=== PATIENT | female | born 1965 | race Caucasian/White ===

== ENCOUNTER 2019-01-19 12:08 | Emergency (ER) | payer BC, OTHER ==
--- NOTE | 2019-01-19 12:11 | ERPHSYRPT ---
- History of Present Illness Time Seen by Provider: 01/19/19 12:11 Source: patient Exam Limitations: no limitations Physician History: 53 y/o nonsmoking white female presents with 10 days of cough, fever, body aches and 3 days of intermittent diarrhea but no vomiting. pt denies cp and denies abd pain. pt is around smokers. pt has h/o recurrent bronchitis. pt seen at urgent care center who sent her here after evaluating. Timing/Duration: day(s) (10) Fever Severity: mild Fever Therapy MEDICAL/SURGERY REGISTERED NURSE: none Associated Symptoms: cough, headache, No abdominal pain, No chest pain, No stiff neck Allergies/Adverse Reactions: No Known Drug Allergies Allergy (Verified 04/29/12 13:42) Home Medications: Alprazolam 1 mg [Xanax 1 mg] 2 mg PO TID 01/18/13 [History] Dicyclomine HCl 20 mg [Bentyl 20 mg] 40 mg PO ACHS 01/18/13 [History] Fluoxetine HCl 20 mg [Prozac 20 MG] 20 mg PO DAILY 01/18/13 [History] Hx Tetanus, Diphtheria Vaccination/Date Given: No Hx Influenza Vaccination/Date Given: Yes (fall 2011) Hx Pneumococcal Vaccination/Date Given: No - Review of Systems Constitutional: Fever Eyes: No Symptoms Ears, Nose, & Throat: No Symptoms Respiratory: Cough, Dyspnea (mild) Cardiac: No Chest Pain, No Palpitations, No Syncope Abdominal/Gastrointestinal: Nausea (mild), Diarrhea (mild intermittent), No Abdominal Pain, No Vomiting Genitourinary Symptoms: No Symptoms Musculoskeletal: No Symptoms Skin: No Symptoms Neurological: No Symptoms Psychological: No Symptoms Endocrine: No Symptoms Hematologic/Lymphatic: No Symptoms Immunological/Allergic: No Symptoms All Other Systems: Reviewed and Negative - Past Medical History Pertinent Past Medical History: No Neurological History: No Pertinent History ENT History: No Pertinent History Cardiac History: No Pertinent History Respiratory History: No Pertinent History Endocrine Medical History: No Pertinent History Musculoskeletal History: Degenerative Disk Disease GI Medical History: GERD, Ulcer, Other History: No Pertinent History Psycho-Social History: Anxiety, Depression Female Reproductive Disorders: Cervical Cancer - Past Surgical History Past Surgical History: Yes Neuro Surgical History: Other Cardiac: No Pertinent History Respiratory: No Pertinent History Gastrointestinal: No Pertinent History Genitourinary: No Pertinent History Musculoskeletal: No Pertinent History Female Surgical History: Hysterectomy, Tubal Ligation Other Surgical History: nerve decompression - Social History Smoking Status: Never smoker Exposure to second hand smoke: Yes Drug Use: none Patient Lives Alone: No - Nursing Vital Signs Nursing Vital Signs: Initial Vital Signs Temperature 99.8 F 01/19/19 12:14 Pulse Rate 80 01/19/19 12:14 Respiratory Rate 20 01/19/19 12:14 Blood Pressure 154/83 01/19/19 12:14 O2 Sat by Pulse Oximetry 96 01/19/19 12:14 Pain Scale Pain Intensity 2 - Physical Exam General Appearance: mild distress, alert, anxiety Eye Exam: PERRL/EOMI, eyes nml inspection ENT Exam: normal ENT inspection, TMs normal, pharynx normal Neck Exam: normal inspection, non-tender, supple, full range of motion, trachea midline Respiratory Exam: normal breath sounds, chest non-tender, lungs clear, no respiratory distress Cardiovascular/Chest Exam: normal heart sounds, regular rate/rhythm, murmur Gastrointestinal/Abdominal Exam: soft, non tender, no distention, no mass, no guarding, no ecchymosis, no organomegaly, no pulsatile mass Pelvic Exam: not done Rectal Exam: not done Extremity Exam: non-tender, normal range of motion, normal inspection Neurologic Exam: alert, oriented x 3, cooperative, 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, normal mood/affect Skin Exam: normal color, warm, dry Lymphatic: No adenopathy SpO2 Interpretation: normal O2 Delivery: Room Air - Course Nursing assessment & vital signs reviewed: Yes Ordered Tests: Active Orders 24 hr Category Date Time Status CHEST 1 VIEW (PORTABLE) Stat Exams 01/19/19 12:35 Completed Medication Summary Generic Name Dose Route Start Last Admin Trade Name Freq PRN Reason Stop Dose Admin Ceftriaxone Sodium/Dextrose 1 g in 50 mls @ 100 mls/hr 01/19/19 12:35 12:51 Rocephin 1 Gm-D5w 50 Ml Bag IV 01/19/19 13:04 100 mls/hr STAT STA 100 mls/hr Administration Discontinued Medications Generic Name Dose Route Start Last Admin Trade Name Freq PRN Reason Stop Dose Admin Ceftriaxone Sodium/Dextrose Confirm 01/19/19 12:44 Rocephin 1 Gm-D5w 50 Ml Bag Administered 01/19/19 12:45 Dose 1 g in 50 mls @ ud IV .STK-MED ONE Methylprednisolone Sodium Succinate 125 mg 01/19/19 12:35 01/19/19 12:50 Solu-Medrol 125 Mg IV 01/19/19 12:36 125 mg STAT ONE Administration Methylprednisolone Sodium Succinate Confirm 01/19/19 12:44 Solu-Medrol 125 Mg Administered 01/19/19 12:45 Dose 125 mg .ROUTE .STK-MED ONE - Progress Progress: improved Progress Note: 01/19/19 13:04 cxr-no acute process Counseled pt/family regarding: diagnosis, need for follow-up, rad results - Departure Departure Disposition: Home Clinical Impression: Bronchitis Condition: Stable Critical Care Time: No Additional Instructions: drink plenty of fluids. follow up with primary doctor for further management. add ibuprofen for fever, body aches Prescriptions: Ondansetron ODT 4 MG [Zofran Odt 4 mg] 4 mg PO Q6H PRN PRN #10 tab.rapdis PRN Reason: Vomiting Cefdinir 300 mg PO BID 7 Days #14 capsule Hydrocodone Bit/Acetaminophen [Hydrocodone-Acetaminophen Soln] 10 ml PO Q6H # 120 ml Prednisone 5 mg [Deltasone 5 mg] 5 mg PO TID #12 tablet
[2019-01-19 12:19] VITALS: O2SAT 96
[2019-01-19] MEDS ORDERED: ROCEPHIN 1 Gm-D5w 50 ml Bag** 1 G/50 ML IVPB IV STA (12:35)
[2019-01-19] MEDS ORDERED: solu-MEDROL 125 MG IV ONE (12:35)
[2019-01-19] MEDS ORDERED: ROCEPHIN 1 Gm-D5w 50 ml Bag** 1 G/50 ML IVPB IV ONE (12:44)
[2019-01-19] MEDS ORDERED: solu-MEDROL 125 MG ONE (12:44)
--- NOTE | 2019-01-19 12:57 | XRAY ---
Indication: Fever and cough. Comparison: December 05, 2017. Portable chest again demonstrates normal heart and lungs. Bony thorax intact again with minimal degenerative changes. No new/acute findings.
[2019-01-19 13:20] VITALS: BP 119/46; PULSE 77
== END 2019-01-19 13:33 | disposition home or self-care (01) ==
LOC: ED 12:08
DX: J40 Bronchitis, not specified as acute or chronic (principal); K21.9 Gastro-esophageal reflux disease without esophagitis; F41.9 Anxiety disorder, unspecified; F32.9 Major depressive disorder, single episode, unspecified; Z85.41 Personal history of malignant neoplasm of cervix uteri; Z79.899 Other long term (current) drug therapy
CPT/HCPCS: 36000; 71045; 96365; 96374; 99284; J0696; J2930

== ENCOUNTER 2019-06-18 11:59 | Emergency (ER) | payer SELFPAY ==
[2019-06-18] MEDS ORDERED: Sodium Chloride 0.9% 1000 ML 1,000 ML IV STA (12:23)
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
[2019-06-18] MEDS ORDERED: Sodium Chloride 0.9% 1000 ML 1,000 ML ONE (12:30)
[2019-06-18 12:47] LABS: Absolute Neutrophil Ct (ANC) 5.39 (1.4-6.9); BASOPHIL % 1.1 % (0.0-0.4); Basophil (Absolute #) 0.09 (0-0.4); Eosinophil % 4.4 % (0.00-5.0); Eosinophil (Absolute #) 0.36 (0-0.5); Hematocrit 37.4 % (35-47); Hemoglobin 12.9 gm/dl (12.0-16.0); Lymphocyte (Absolute #) 1.72 (1.0-4.6); Lymphocytes % 21.1 % (24.0-44.0); Mean Corpuscular Hemoglobin 30.7 pg (26-32); Mean Corpuscular Hgb Concent. 34.5 g/dl (32-36); Mean Platelet Volume 8.5 fl (6-9.5); Monocytes % 7.4 % (0.0-12.0); Platelet Count 276 K/mm3 (150-450); Red Cell Distribution Width 12.8 % (11.5-14.0); White Blood Count 8.2 K/mm3 (4.0-10.5)
[2019-06-18 12:57] LABS: ALBUMIN 4.4 g/dL (3.5-5.0); ALKALINE PHOSPHATASE 67 U/L (38-126); ANION GAP 14.4 MEQ/L (5-15); BLOOD UREA NITROGEN 10 mg/dL (7-17); CHLORIDE 104 mmol/L (98-107); Calcium 9.8 mg/dL (8.4-10.2); Carbon Dioxide 26 mmol/L (22-30); Creatinine 1 0.73 mg/dL (0.52-1.04); Glucose 82 mg/dL (74-106); Potassium 3.9 mmol/L (3.5-5.1); SGOT/AST 36 U/L (14-36); SGPT/ALT 28 U/L (0-35); SODIUM 141 mmol/L (137-145); Total Protein 7.6 g/dL (6.3-8.2)
[2019-06-18 12:59] LABS: ACETAMINOPHEN < 10 ug/ml (10-30); ETHYL ALCOHOL < 10 mg/dL (0-10); SALICYLATE < 1.0 mg/dL (2-20)
[2019-06-18 14:10] LABS: Appearance CLEAR (CLEAR); Bacteria RARE /HPF (NEGATIVE); Bilirubin NEGATIVE (NEGATIVE); Blood NEGATIVE Ery/ul (0-5); Epithelial Cells FEW /HPF (FEW); Glucose NEGATIVE (NEGATIVE); Ketones NEGATIVE (NEGATIVE); Leukocyte Esterase NEGATIVE (NEGATIVE); Mucus MODERATE /HPF (NEGATIVE); Nitrite NEGATIVE (NEGATIVE); Protein,Urine Dip NEGATIVE (Negative); RBC 0-2 /HPF (0-2); Specific Gravity 1.003 (1.005-1.025); Urobilinogen NEGATIVE mg/dL (0-1); WBC 0-2 /HPF (0-5)
[2019-06-18 14:16] LABS: Amphetamine,Urine POSITIVE (NEGATIVE); Barbiturate,Urine NEGATIVE (NEGATIVE); Benzodiazepine,Urine NEGATIVE (NEGATIVE); Cocaine,Urine NEGATIVE (NEGATIVE); Methadone,Urine NEGATIVE (NEGATIVE); Opiate,Urine NEGATIVE (NEGATIVE); PCP,Urine NEGATIVE (NEGATIVE); THC,Urine NEGATIVE (NEGATIVE)
--- NOTE | 2019-06-18 19:58 | XRAY ---
Indication: Pain following dog attack. Multiple contiguous axial images obtained through the head without contrast. Comparison: None Normal appearing brain parenchyma, ventricles, and bony calvarium. There is moderate mucosal thickening of both ethmoid and both maxillary sinuses. Mastoid air cells are clear. Impression: Paranasal sinus disease. No acute intracranial abnormalities. CTDI 45.04
--- NOTE | 2019-06-18 20:00 | XRAY ---
Indication: Pain following dog attack. Multiple contiguous axial images obtained through the facial bones. Sagittal and coronal reformatted images obtained. Comparison: None Several images are degraded by motion artifact even with repeat CT. No acute fracture, suspicious bony lesions, or radiopaque foreign body. Orbits including roof, george, and floors are intact. There is moderate mucosal thickening of both ethmoid and both maxillary sinuses. Mastoid air cells are clear. Centimeter/subcentimeter cervical and submandibular lymph nodes bilaterally presumed reactive. Remaining visualized noncontrasted soft tissues are unremarkable. Impression: Motion artifact. Paranasal sinus disease. Negative acute fracture. CTDI 38.27
[2019-06-18 21:59] VITALS: PULSE 75
[2019-06-19 00:41] VITALS: BP 117/82; O2SAT 97
== END 2019-06-19 01:10 | disposition short-term general hospital (02) ==
LOC: ED 11:59
DX: R41.0 Disorientation, unspecified (principal)
CPT/HCPCS: 36415; 70450; 70486; 80053; 80307; 81001; 84484; 85025; 93005; 93041; 96360; 99285; G0481; G0480

== ENCOUNTER 2019-10-09 12:41 | Emergency (ER) | payer BC, MEDICAID, SELFPAY ==
[2019-10-09] MEDS ORDERED: DUONEB 0.5-3 MG/3 ml Neb IH ONE ×2 (12:43→13:20)
[2019-10-09] MEDS ORDERED: Ativan 2 MG/1 ML VIAL IV ONE (12:54)
[2019-10-09] MEDS ORDERED: solu-MEDROL 125 MG IV ONE (12:54)
--- NOTE | 2019-10-09 12:54 | ERPHSYRPT ---
- History of Present Illness Time Seen by Provider: 10/09/19 12:51 Source: patient, family Exam Limitations: clinical condition Physician History: This is a 54-year-old female, presents with shortness of breath and right-sided chest pain. Patient does not have any clotting disorders. Patient has no history of coronary artery disease. Patient does not smoke cigarettes. She has a history of bronchitis and does have nebulizer treatments of albuterol at home. Patient has been "fighting this" for 2 months. Symptoms are worse today. Timing/Duration: week(s) (8), worse Severity of Dyspnea-Max: moderate Severity of Dyspnea-Current: moderate Possible Cause: occasional episodes Modifying Factors: Improves With: coughing, other (As of breath) Associated Symptoms: anxiety, cough, chest pain/discomfort (Right side) Allergies/Adverse Reactions: No Known Drug Allergies Allergy (Verified 10/09/19 12:52) Home Medications: No Reportable Medications [No Reported Medications] 10/09/19 [History] Hx Tetanus, Diphtheria Vaccination/Date Given: No Hx Influenza Vaccination/Date Given: No Hx Pneumococcal Vaccination/Date Given: No - Review of Systems Constitutional: No Symptoms Eyes: No Symptoms Ears, Nose, & Throat: No Symptoms Respiratory: Cough, Dyspnea, Wheezing Cardiac: Chest Pain (Right side) Abdominal/Gastrointestinal: No Symptoms Genitourinary Symptoms: No Symptoms Musculoskeletal: No Symptoms Skin: No Symptoms Neurological: No Symptoms Psychological: Anxiety Endocrine: No Symptoms Hematologic/Lymphatic: No Symptoms Immunological/Allergic: No Symptoms All Other Systems: Reviewed and Negative - Past Medical History Pertinent Past Medical History: Yes Neurological History: No Pertinent History ENT History: No Pertinent History Cardiac History: No Pertinent History Respiratory History: No Pertinent History Endocrine Medical History: No Pertinent History Musculoskeletal History: Degenerative Disk Disease GI Medical History: GERD, Ulcer, Other History: No Pertinent History Psycho-Social History: Anxiety, Depression Female Reproductive Disorders: Cervical Cancer - Past Surgical History Past Surgical History: Yes Neuro Surgical History: Other Cardiac: No Pertinent History Respiratory: No Pertinent History Gastrointestinal: No Pertinent History Genitourinary: No Pertinent History Musculoskeletal: No Pertinent History Female Surgical History: Hysterectomy, Tubal Ligation Other Surgical History: nerve decompression - Social History Smoking Status: Never smoker Exposure to second hand smoke: Yes Drug Use: none Patient Lives Alone: No - Nursing Vital Signs Nursing Vital Signs: Initial Vital Signs Temperature 99.0 F 10/09/19 12:53 Pulse Rate 82 10/09/19 12:53 Respiratory Rate 35 H 10/09/19 12:53 Blood Pressure 144/94 10/09/19 12:53 O2 Sat by Pulse Oximetry 84 L 10/09/19 12:53 Pain Scale Pain Intensity 0 - Physical Exam General Appearance: moderate distress, alert, anxiety Eye Exam: PERRL/EOMI Ears, Nose, Throat Exam: hearing grossly normal Neck Exam: normal inspection, non-tender, supple, full range of motion Respiratory Exam: chest tenderness (Side), respiratory distress (Mild), airway intact, wheezing Cardiovascular/Chest Exam: normal heart sounds, regular rate/rhythm Neurologic Exam: alert, oriented x 3, cooperative, back tufter II-XII nml as tested, nml cerebellar function, nml station & gait Skin Exam: normal color, warm, dry Lymphatic Exam: No adenopathy SpO2 Interpretation: normal O2 Delivery: Room Air Ordered Tests: Active Orders 24 hr Category Date Time Status Statement Clerks Supervisor STAT Care 10/09/19 12:55 Active EKG-ER Only STAT Care 10/09/19 12:54 Active IV Insertion STAT Care 10/09/19 12:54 Active Pulse Oximetry (ED) STAT Care 10/09/19 12:54 Active CHEST 1 VIEW (PORTABLE) Stat Exams 10/09/19 12:54 Completed CBC W DIFF Stat Lab 10/09/19 Completed CMP Stat Lab 10/09/19 Completed D-DIMER QUANTITATIVE Stat Lab 10/09/19 Completed Lactic Acid Stat Lab 10/09/19 12:54 Completed NT PRO BNP Stat Lab 10/09/19 Completed PROTIME WITH INR Stat Lab 10/09/19 Completed TROPONIN Q3H Lab 10/09/19 Completed TROPONIN Q3H Lab 10/09/19 16:00 Ordered TROPONIN Q3H Lab 10/09/19 19:00 Ordered TROPONIN Q3H Lab 10/09/19 22:00 Ordered TROPONIN Q3H Lab 10/10/19 01:00 Ordered Respiratory Therapy Assessment DAILY RT 10/09/19 13:20 Completed Medication Summary Discontinued Medications Generic Name Dose Route Start Last Admin Trade Name Freq PRN Reason Stop Dose Admin Albuterol/Ipratropium Confirm 10/09/19 12:43 Duoneb 0.5-3 Mg/3 Ml Neb Administered 10/09/19 12:44 Dose 3 ml IH .STK-MED ONE Albuterol/Ipratropium 3 ml 10/09/19 13:20 10/09/19 13:00 Duoneb 0.5-3 Mg/3 Ml Neb IH 10/09/19 13:21 3 ml STAT ONE Administration Lorazepam 1 mg 10/09/19 12:54 10/09/19 13:18 Ativan 2 Mg/1 Ml Vial IV 10/09/19 12:55 1 mg STAT ONE Administration Lorazepam Confirm 10/09/19 13:09 Ativan 2 Mg/1 Ml Vial Administered 10/09/19 13:10 Dose 2 mg .ROUTE .STK-MED ONE Methylprednisolone Sodium Succinate 125 mg 10/09/19 12:54 10/09/19 13:20 Solu-Medrol 125 Mg IV 10/09/19 12:55 125 mg STAT ONE Administration Methylprednisolone Sodium Succinate Confirm 10/09/19 13:09 Solu-Medrol 125 Mg Administered 10/09/19 13:10 Dose 125 mg .ROUTE .STK-MED ONE Morphine Sulfate 2 mg 10/09/19 12:55 10/09/19 13:20 Morphine Sulfate 2 Mg Inj IV 10/09/19 12:56 2 mg STAT ONE Administration Morphine Sulfate Confirm 10/09/19 13:09 Morphine Sulfate 2 Mg Inj Administered 10/09/19 13:10 Dose 2 mg .ROUTE .STK-MED ONE Lab/Rad Data: Laboratory Result Diagrams 10/09/19 Unknown 10/09/19 Unknown Laboratory Results 10/09/19 10/09/19 10/09/19 Range/Units Unknown Unknown Unknown WBC (4.0-10.5) K/mm3 RBC (4.1-5.4) M/mm3 Hgb (12.0-16.0) gm/dl Hct (35-47) % MCV (78-100) fl MCH (26-32) pg MCHC (32-36) g/dl RDW (11.5-14.0) % Plt Count (150-450) K/mm3 MPV (7.5-11.0) fl Gran % (36.0-66.0) % Eos # (Auto) (0-0.5) Absolute Lymphs (auto) (1.0-4.6) Absolute Monos (auto) (0.0-1.3) Lymphocytes % (24.0-44.0) % Monocytes % (0.0-12.0) % Eosinophils % (0.00-5.0) % Basophils % (0.0-0.4) % Absolute Granulocytes (1.4-6.9) Basophils # (0-0.4) PT 10.2 (9.95-12.35) SECONDS INR 0.90 (0.8-3.0) D-Dimer 278 (215-500) ng/mL Sodium (137-145) mmol/L Potassium (3.5-5.1) mmol/L Chloride (98-107) mmol/L Carbon Dioxide (22-30) mmol/L Anion Gap (5-15) MEQ/L BUN (7-17) mg/dL Creatinine (0.52-1.04) mg/dL Estimated GFR ML/MIN Glucose (74-106) mg/dL Lactic Acid (0.4-2.0) Calcium (8.4-10.2) mg/dL Total Bilirubin (0.2-1.3) mg/dL AST (14-36) U/L ALT (0-35) U/L Alkaline Phosphatase (38-126) U/L Troponin I < 0.012 (0.000-0.034) ng/mL NT-Pro-B Natriuret Pep (0-900) pg/mL Serum Total Protein (6.3-8.2) g/dL Albumin (3.5-5.0) g/dL Influenza Type A Ag NEGATIVE (NEGATIVE) Influenza Type B Ag NEGATIVE (NEGATIVE) RSV (PCR) NEGATIVE (Negative) 10/09/19 10/09/19 10/09/19 Range/Units Unknown Unknown 12:54 WBC 6.4 (4.0-10.5) K/mm3 RBC 4.32 (4.1-5.4) M/mm3 Hgb 13.4 (12.0-16.0) gm/dl Hct 40.2 (35-47) % MCV 93.1 (78-100) fl MCH 31.0 (26-32) pg MCHC 33.3 (32-36) g/dl RDW 12.7 (11.5-14.0) % Plt Count 323 (150-450) K/mm3 MPV 9.1 (7.5-11.0) fl Gran % 43.8 (36.0-66.0) % Eos # (Auto) 0.98 H (0-0.5) Absolute Lymphs (auto) 1.96 (1.0-4.6) Absolute Monos (auto) 0.56 (0.0-1.3) Lymphocytes % 30.6 (24.0-44.0) % Monocytes % 8.7 (0.0-12.0) % Eosinophils % 15.3 H (0.00-5.0) % Basophils % 1.6 (0.0-0.4) % Absolute Granulocytes 2.81 (1.4-6.9) Basophils # 0.10 (0-0.4) PT (9.95-12.35) SECONDS INR (0.8-3.0) D-Dimer (215-500) ng/mL Sodium 142 (137-145) mmol/L Potassium 4.4 (3.5-5.1) mmol/L Chloride 106 (98-107) mmol/L Carbon Dioxide 28 (22-30) mmol/L Anion Gap 11.7 (5-15) MEQ/L BUN 8 (7-17) mg/dL Creatinine 0.73 (0.52-1.04) mg/dL Estimated GFR > 60.0 ML/MIN Glucose 100 (74-106) mg/dL Lactic Acid 2.0 (0.4-2.0) Calcium 9.6 (8.4-10.2) mg/dL Total Bilirubin 0.60 (0.2-1.3) mg/dL AST 35 (14-36) U/L ALT 28 (0-35) U/L Alkaline Phosphatase 84 (38-126) U/L Troponin I (0.000-0.034) ng/mL NT-Pro-B Natriuret Pep 126 (0-900) pg/mL Serum Total Protein 7.1 (6.3-8.2) g/dL Albumin 4.2 (3.5-5.0) g/dL Influenza Type A Ag (NEGATIVE) Influenza Type B Ag (NEGATIVE) RSV (PCR) (Negative) - Progress Progress: improved, re-examined Air Movement: good Progress Note: 10/09/19 14:06 Chest x-ray showed no acute pulmonary process 10/09/19 14:40 Patient states that she did something very stupid a few days ago. She is wondering if this is contributing to her symptoms. That is, patient used methamphetamines a few days ago. Blood Culture(s) Obtained: No Antibiotics given: No Counseled pt/family regarding: lab results, diagnosis, need for follow-up, rad results - Departure Departure Disposition: Home Clinical Impression: Anxiety, Chest pain, non-cardiac, Bronchitis Condition: Stable Critical Care Time: No Referrals: CARISSA ROCHA [Primary Care Provider] - Additional Instructions: Follow-up with your primary care physician for further management. Avoid illicit drug use. Use Tylenol and ibuprofen for pain.
[2019-10-09] MEDS ORDERED: MORPHINE SULFATE 2 MG INJ IV ONE (12:55)
[2019-10-09] MEDS ORDERED: Ativan 2 MG/1 ML VIAL ONE (13:09)
[2019-10-09] MEDS ORDERED: MORPHINE SULFATE 2 MG INJ ONE (13:09)
[2019-10-09] MEDS ORDERED: solu-MEDROL 125 MG ONE (13:09)
--- NOTE | 2019-10-09 13:24 | XRAY ---
Indication: Chest pain, short of breath, and fever. Comparison: January 19, 2019. Portable chest again demonstrates normal heart and lungs. Bony thorax intact again with minimal degenerative changes. No new/acute findings.
[2019-10-09 13:48] LABS: Absolute Neutrophil Ct (ANC) 2.81 (1.4-6.9); BASOPHIL % 1.6 % (0.0-0.4); Eosinophil % 15.3 % (0.00-5.0); Eosinophil (Absolute #) 0.98 (0-0.5); Hematocrit 40.2 % (35-47); Hemoglobin 13.4 gm/dl (12.0-16.0); Lymphocyte (Absolute #) 1.96 (1.0-4.6); Lymphocytes % 30.6 % (24.0-44.0); Mean Cell Volume 93.1 fl (78-100); Mean Corpuscular Hgb Concent. 33.3 g/dl (32-36); Mean Platelet Volume 9.1 fl (7.5-11.0); Monocyte (Absolute #) 0.56 (0.0-1.3); Monocytes % 8.7 % (0.0-12.0); Neutrophil % 43.8 % (36.0-66.0); Platelet Count 323 K/mm3 (150-450); Red Blood Count 4.32 M/mm3 (4.1-5.4); Red Cell Distribution Width 12.7 % (11.5-14.0); White Blood Count 6.4 K/mm3 (4.0-10.5)
[2019-10-09 13:59] LABS: INR 0.9 (0.8-3.0); PROTIME 10.2 SECONDS (9.95-12.35)
[2019-10-09 14:13] LABS: ALBUMIN 4.2 g/dL (3.5-5.0); ALKALINE PHOSPHATASE 84 U/L (38-126); ANION GAP 11.7 MEQ/L (5-15); BLOOD UREA NITROGEN 8 mg/dL (7-17); CHLORIDE 106 mmol/L (98-107); Calcium 9.6 mg/dL (8.4-10.2); Carbon Dioxide 28 mmol/L (22-30); Creatinine 1 0.73 mg/dL (0.52-1.04); Glucose 100 mg/dL (74-106); NT PRO BNP 126 pg/mL (0-900); Potassium 4.4 mmol/L (3.5-5.1); SGOT/AST 35 U/L (14-36); SGPT/ALT 28 U/L (0-35); SODIUM 142 mmol/L (137-145); Total Protein 7.1 g/dL (6.3-8.2)
[2019-10-09 14:21] LABS: INFLUENZA A NEGATIVE (NEGATIVE); INFLUENZA B NEGATIVE (NEGATIVE); RESPIRATORY SYNCTIAL VIRUS NEGATIVE (Negative)
[2019-10-09 14:32] VITALS: BP 146/87; PULSE 65; O2SAT 100
== END 2019-10-09 15:39 | disposition home or self-care (01) ==
LOC: ED 12:41
DX: F41.9 Anxiety disorder, unspecified (principal); R07.89 Other chest pain; J40 Bronchitis, not specified as acute or chronic; Z85.41 Personal history of malignant neoplasm of cervix uteri
CPT/HCPCS: 36000; 36415; 71045; 80053; 83605; 83880; 84484; 85025; 85379; 85610; 87631; 93005; 93041; 94640; 94760; 96374; 96375; 99284; J2060; J2270; J2930; A9270-GY

== ENCOUNTER 2020-07-22 04:54 | Observation (INO) | payer MEDICAID ==
[2020-07-22] MEDS ORDERED: DUONEB 0.5-3 MG/3 ml Neb IH ONE ×2 (05:12→06:39)
[2020-07-22] MEDS ORDERED: ROCEPHIN 1 Gm-D5w 50 ml Bag** 1 G/50 ML IVPB IV STA (05:12)
[2020-07-22] MEDS ORDERED: solu-MEDROL 125 MG IV ONE (05:12)
[2020-07-22] MEDS ORDERED: Zithromax 500 MG/ 250 ML NaCl Premix 500 MG/250 ML IVPB IV STA (05:12)
--- NOTE | 2020-07-22 05:18 | ERPHSYRPT ---
<JORDAN MENDOZASH - Last Filed: 07/22/20 09:33> - History of Present Illness Source: patient Exam Limitations: no limitations Patient Subjective Stated Complaint: pt state she has been short of breath for the last week. states she has been unable to get comgortable or sleep d/t shortness of breath tonight. Triage Nursing Assessment: pt alert and oreinted, answers questions approp. pt ambulatory with steady gait noted. pt short of breath with coarse lung sounds and wheezing throughout.skin warm and dry. pt unable to talk without pausing. occasional moist cough noted. Timing/Duration: week(s) (1), gradual onset, worse Activities at Onset: rest Severity of Dyspnea-Max: severe Severity of Dyspnea-Current: moderate Possible Cause: no prior episodes Modifying Factors: Improves With: albuterol nebulizer. Worsens With: activity, coughing, deep breath, exertion Associated Symptoms: cough, chest pain/discomfort, wheezing, weakness, painful breathing, productive cough, tightness Hx Tetanus, Diphtheria Vaccination/Date Given: No Hx Influenza Vaccination/Date Given: No Hx Pneumococcal Vaccination/Date Given: No Immunizations Up to Date: No <INOCENCIO WATSON - Last Filed: 07/24/20 08:35> - History of Present Illness Time Seen by Provider: 07/22/20 05:06 Physician History: 54 years old female presented in the ER with chief complaint of warts. Shortness of breath for almost 1 week associated with cough productive thick green sputum copious in amount. Because of repeated coughing she is having pain in the lower chest george bilaterally. Subjective feeling of fever and chills. She has been using nebulizer at home with no significant relief. (INOCENCIO WATSON) Allergies/Adverse Reactions: No Known Drug Allergies Allergy (Verified 07/22/20 05:09) Home Medications: Albuterol 2.5 mg/3 ml Neb [Proventil 2.5 mg/3 ml Neb] 1 inh .ROUTE Q4H PRN 07/22/20 [History] Albuterol Common Canister [Ventolin Common Canister] 2 puff IH QID PRN 07/22/20 [History] Alprazolam 1 mg [Xanax 1 mg] 1 mg PO TID 07/22/20 [History] Aripiprazole [Abilify] 15 mg PO DAILY 07/22/20 [History] Buspirone HCl 5 mg [Buspar 5 mg] 5 mg PO BID 07/22/20 [History] Desvenlafaxine Succinate [Pristiq] 100 mg PO DAILY 07/22/20 [History] Pravastatin Sodium 40 mg PO DAILY 07/22/20 [History] Travel Risk - International Travel Have you traveled outside of the country in past 3 weeks: No - Coronavirus Screening Are you exhibiting any of the following symptoms?: Yes Symptoms: Shortness of Breath Close contact with a COVID-19 positive Pt in past 14-21 Days: No <INOCENCIO WATSON - Last Filed: 07/24/20 08:35> - Review of Systems Constitutional: No Symptoms Eyes: No Symptoms Ears, Nose, & Throat: No Symptoms Respiratory: Cough, Dyspnea Cardiac: Chest Pain Abdominal/Gastrointestinal: No Symptoms Genitourinary Symptoms: No Symptoms Musculoskeletal: No Symptoms Skin: No Symptoms Neurological: No Symptoms Psychological: No Symptoms Endocrine: No Symptoms Hematologic/Lymphatic: No Symptoms Immunological/Allergic: No Symptoms <INOCENCIO WATSON - Last Filed: 07/24/20 08:35> - Past Medical History Pertinent Past Medical History: Yes Neurological History: No Pertinent History ENT History: No Pertinent History Cardiac History: No Pertinent History Respiratory History: Bronchitis Endocrine Medical History: No Pertinent History Musculoskeletal History: Degenerative Disk Disease GI Medical History: GERD, Ulcer, Other History: No Pertinent History Psycho-Social History: Anxiety, Depression Female Reproductive Disorders: Cervical Cancer Other Medical History: stage 1 cervical ca - Past Surgical History Past Surgical History: Yes Neuro Surgical History: Other Cardiac: No Pertinent History Respiratory: No Pertinent History Gastrointestinal: No Pertinent History Genitourinary: No Pertinent History Musculoskeletal: No Pertinent History, Orthopedic Surgery Female Surgical History: Hysterectomy, Tubal Ligation Other Surgical History: nerve decompression, back surgery, conization - Social History Smoking Status: Never smoker Exposure to second hand smoke: Yes Drug Use: none Patient Lives Alone: No - Female History Hx Last Menstrual Period: hyster Hx Now: No <INOCENCIO WATSON - Last Filed: 07/24/20 08:35> - Physical Exam General Appearance: moderate distress, alert Eye Exam: PERRL/EOMI, eyes nml inspection Ears, Nose, Throat Exam: hearing grossly normal, pharyngeal erythema Neck Exam: normal inspection, non-tender, supple, full range of motion Respiratory Exam: diminished breath sounds, accessory muscle use, crackles/rales, rhonchi, wheezing Cardiovascular/Chest Exam: normal heart sounds, tachycardia Abdominal/Gastrointestinal Exam: soft, normal bowel sounds, No tenderness Extremity Exam: non-tender, normal range of motion, normal inspection Neurologic Exam: alert, oriented x 3, cooperative Skin Exam: normal color SpO2 Interpretation: normal SpO2: 94 O2 Delivery: Room Air <INOCENCIO WATSON - Last Filed: 07/24/20 08:35> - Nursing Vital Signs Nursing Vital Signs: Initial Vital Signs Pulse Rate 109 H 07/22/20 04:58 Respiratory Rate 32 H 07/22/20 04:58 Blood Pressure 173/121 07/22/20 04:58 O2 Sat by Pulse Oximetry 88 L 07/22/20 04:58 Pain Scale Pain Intensity 0 - Course Nursing assessment & vital signs reviewed: Yes EKG Interpreted by Me: RATE ([id number]), Sinus Tach, Left [place] Deviation, NORMAL INTERVALS, NORMAL QRS <INOCENCIO WATSON - Last Filed: 07/24/20 08:35> Ordered Tests: Medication Summary Discontinued Medications Generic Name Dose Route Start Last Admin Trade Name Amanq PRN Reason Stop Dose Admin Acetaminophen 650 mg 07/22/20 10:50 Tylenol 325 Mg PO 08/21/20 10:49 Q4H PRN PRN PAIN AND/OR FEVER Albuterol Sulfate 2 puff 07/22/20 12:23 Ventolin Common Canister IH 08/21/20 12:22 QID PRN PRN sob Albuterol Sulfate 2.5 mg 07/22/20 12:23 07/22/20 23:20 Proventil 2.5 Mg/3 Ml Neb IH 08/21/20 12:22 2.5 mg Q4H PRN PRN Administration sob Albuterol/Ipratropium 3 ml 07/22/20 05:12 07/22/20 06:56 Duoneb 0.5-3 Mg/3 Ml Neb IH 07/22/20 05:13 3 ml STAT ONE Administration Albuterol/Ipratropium Confirm 07/22/20 06:39 Duoneb 0.5-3 Mg/3 Ml Neb Administered 07/22/20 06:40 Dose 3 ml IH .STK-MED ONE Albuterol/Ipratropium 3 ml 07/22/20 11:00 07/23/20 07:13 Duoneb 0.5-3 Mg/3 Ml Neb IH 08/21/20 10:59 3 ml QIDRT OPHELIA Administration Albuterol/Ipratropium 3 ml 07/22/20 13:00 Duoneb 0.5-3 Mg/3 Ml Neb IH 08/21/20 12:59 Q6HRT OPHELIA Alprazolam 1 mg 07/22/20 15:00 07/22/20 21:53 Xanax 1 Mg PO 08/21/20 14:59 1 mg TID OPHELIA Administration Aripiprazole 15 mg 07/22/20 13:00 07/22/20 13:18 Abilify 10 Mg PO 08/21/20 12:59 15 mg DAILY OPHELIA Administration Buspirone HCl 5 mg 07/22/20 12:45 07/22/20 21:53 Buspar 5 Mg PO 08/21/20 12:44 5 mg BID OPHELIA Administration Desvenlafaxine Succinate 100 mg 07/22/20 13:00 07/22/20 13:17 Pristiq Er PO 08/21/20 12:59 100 mg DAILY OPHELIA Administration Famotidine 20 mg 07/22/20 10:50 07/22/20 21:53 Pepcid 20 Mg Vial IV 08/21/20 10:49 20 mg Q12HT OPHELIA Administration Ceftriaxone Sodium/Dextrose 1 g in 50 mls @ 100 mls/hr 07/22/20 05:12 07/22/20 06:14 Rocephin 1 Gm-D5w 50 Ml Bag IV 07/22/20 05:41 Infused STAT STA Infusion Azithromycin 500 mg in 250 mls @ 250 mls/hr 07/22/20 05:12 07/22/20 07:16 Zithromax 500 Mg/ 250 Ml Nacl Premix IV 07/22/20 06:11 Infused STAT STA Infusion Azithromycin Confirm 07/22/20 05:32 Zithromax 500 Mg/ 250 Ml Nacl Premix Administered 07/22/20 05:33 Dose 500 mg in 250 mls @ ud IV .STK-MED ONE Ceftriaxone Sodium/Dextrose Confirm 07/22/20 05:32 Rocephin 1 Gm-D5w 50 Ml Bag Administered 07/22/20 05:33 Dose 1 g in 50 mls @ ud IV .STK-MED ONE Azithromycin 500 mg in 250 mls @ 250 mls/hr 07/23/20 10:00 Zithromax 500 Mg/ 250 Ml Nacl Premix IV 08/22/20 09:59 Q24H10 OPHELIA Ceftriaxone Sodium/Dextrose 1 g in 50 mls @ 100 mls/hr 07/22/20 10:50 Rocephin 1 Gm-D5w 50 Ml Bag IV 08/21/20 10:49 Q24H10 OPHELIA Sodium Chloride 1,000 mls @ 100 mls/hr 07/22/20 10:50 07/23/20 08:00 Sodium Chloride 0.9% 1000 Ml IV 08/21/20 10:49 100 mls/hr .Q10H OPHELIA Administration Ceftriaxone Sodium/Dextrose 1 g in 50 mls @ 100 mls/hr 07/23/20 10:00 Rocephin 1 Gm-D5w 50 Ml Bag IV 08/22/20 09:59 Q24H10 OPHELIA Insulin Human Lispro 0 unit 07/22/20 10:50 Humalog SQ 08/21/20 10:49 UD PRN HYPERGLYCEMIA Lorazepam 1 mg 07/22/20 05:46 07/22/20 05:49 Ativan 2 Mg/1 Ml Vial IV 07/22/20 05:47 1 mg STAT ONE Administration Lorazepam Confirm 07/22/20 05:47 Ativan 2 Mg/1 Ml Vial Administered 07/22/20 05:48 Dose 2 mg .ROUTE .STK-MED ONE Methylprednisolone Sodium Succinate 125 mg 07/22/20 05:12 07/22/20 05:21 Solu-Medrol 125 Mg IV 07/22/20 05:13 125 mg STAT ONE Administration Methylprednisolone Sodium Succinate Confirm 07/22/20 05:20 Solu-Medrol 125 Mg Administered 07/22/20 05:21 Dose 125 mg .ROUTE .STK-MED ONE Methylprednisolone Sodium Succinate 80 mg 07/22/20 12:00 07/23/20 06:27 Solu-Medrol 125 Mg IV 08/21/20 11:59 80 mg Q6HT OPHELIA Administration Simvastatin 40 mg 07/22/20 22:00 07/22/20 21:53 Zocor 20mg PO 08/21/20 21:59 40 mg HS OPHELIA Administration Lab/Rad Data: Laboratory Result Diagrams 07/22/20 05:15 07/22/20 05:15 Laboratory Results 07/22/20 07/22/20 07/22/20 Range/Units 08:33 07:24 06:47 WBC (4.0-10.5) K/mm3 RBC (4.1-5.4) M/mm3 Hgb (12.0-16.0) gm/dl Hct (35-47) % MCV (78-100) fl MCH (26-32) pg MCHC (32-36) g/dl RDW (11.5-14.0) % Plt Count (150-450) K/mm3 MPV (7.5-11.0) fl Segmented Neutrophils (36.0-66.0) % Band Neutrophils (0.0-2.0) % Lymphocytes (Manual) (24-44) % Monocytes (Manual) (0.0-12.0) % Eosinophils (Manual) (0.00-3.0) % Basophils (Manual) (0.0-1.0) % Platelet Estimate (NORMAL) RBC Morphology D-Dimer (215-500) ng/mL Puncture Site RIGHT RADIAL pCO2 53 H (35-45) mmHg pO2 75 (75-100) mmHg Base Excess 1.8 (-2.0-2.0) O2 Saturation 93.9 L (94-100) g/dF ABG pH 7.34 L (7.35-7.45) ABG HCO3 28.6 H (22-28) ABG O2 Sat (Measured) 96.4 (95-100) % Florentin Test YES A-a Gradient 87 a/A Ratio 0.46 Hemoglobin 13.2 Carboxyhemoglobin 1.8 (0.0-6.9) % THgb Methemoglobin 0.8 L (1.4-1.5) % Temperature 37.0 C POC O2 Flow Rate 32 % Sodium (137-145) mmol/L Potassium 4.3 (3.5-5.1) mmol/L Chloride (98-107) mmol/L Carbon Dioxide (22-30) mmol/L Anion Gap (5-15) MEQ/L BUN (7-17) mg/dL Creatinine (0.52-1.04) mg/dL Estimated GFR ML/MIN Glucose (74-106) mg/dL Lactic Acid 1.4 (0.4-2.0) Calcium (8.4-10.2) mg/dL Magnesium (1.6-2.3) mg/dL Total Bilirubin (0.2-1.3) mg/dL AST (14-36) U/L ALT (0-35) U/L Alkaline Phosphatase (38-126) U/L Troponin I < 0.012 (0.000-0.034) ng/mL NT-Pro-B Natriuret Pep (0-900) pg/mL Serum Total Protein (6.3-8.2) g/dL Albumin (3.5-5.0) g/dL Urine Color (YELLOW) Urine Appearance (CLEAR) Urine pH (5-6) Ur Specific [place] (1.005-1.025) Urine Protein (Negative) Urine Ketones (NEGATIVE) Urine Blood (0-5) Rubin/ul Urine Nitrite (NEGATIVE) Urine Bilirubin (NEGATIVE) Urine Urobilinogen (0-1) mg/dL Ur Leukocyte Esterase (NEGATIVE) Urine WBC (Auto) (0-5) /HPF Urine RBC (Auto) (0-2) /HPF U Epithel Cells (Auto) (FEW) /HPF Urine Bacteria (Auto) (NEGATIVE) /HPF Urine Mucus (Auto) (NEGATIVE) /HPF Urine Culture Reflexed (NO) Urine Glucose (NEGATIVE) mg/dL SARS-CoV-2 (PCR) NEGATIVE (NEGATIVE) 07/22/20 07/22/20 07/22/20 Range/Units 06:35 05:15 05:15 WBC (4.0-10.5) K/mm3 RBC (4.1-5.4) M/mm3 Hgb (12.0-16.0) gm/dl Hct (35-47) % MCV (78-100) fl MCH (26-32) pg MCHC (32-36) g/dl RDW (11.5-14.0) % Plt Count (150-450) K/mm3 MPV (7.5-11.0) fl Segmented Neutrophils (36.0-66.0) % Band Neutrophils (0.0-2.0) % Lymphocytes (Manual) (24-44) % Monocytes (Manual) (0.0-12.0) % Eosinophils (Manual) (0.00-3.0) % Basophils (Manual) (0.0-1.0) % Platelet Estimate (NORMAL) RBC Morphology D-Dimer 277 (215-500) ng/mL Puncture Site pCO2 (35-45) mmHg pO2 (75-100) mmHg Base Excess (-2.0-2.0) O2 Saturation (94-100) g/dF ABG pH (7.35-7.45) ABG HCO3 (22-28) ABG O2 Sat (Measured) (95-100) % Florentin Test A-a Gradient a/A Ratio Hemoglobin Carboxyhemoglobin (0.0-6.9) % THgb Methemoglobin (1.4-1.5) % Temperature C POC O2 Flow Rate % Sodium (137-145) mmol/L Potassium (3.5-5.1) mmol/L Chloride (98-107) mmol/L Carbon Dioxide (22-30) mmol/L Anion Gap (5-15) MEQ/L BUN (7-17) mg/dL Creatinine (0.52-1.04) mg/dL Estimated GFR ML/MIN Glucose (74-106) mg/dL Lactic Acid (0.4-2.0) Calcium (8.4-10.2) mg/dL Magnesium (1.6-2.3) mg/dL Total Bilirubin (0.2-1.3) mg/dL AST (14-36) U/L ALT (0-35) U/L Alkaline Phosphatase (38-126) U/L Troponin I < 0.012 (0.000-0.034) ng/mL NT-Pro-B Natriuret Pep (0-900) pg/mL Serum Total Protein (6.3-8.2) g/dL Albumin (3.5-5.0) g/dL Urine Color YELLOW (YELLOW) Urine Appearance SLIGHTLY CLOUDY (CLEAR) Urine pH 5.0 (5-6) Ur Specific [place] 1.012 (1.005-1.025) Urine Protein NEGATIVE (Negative) Urine Ketones NEGATIVE (NEGATIVE) Urine Blood SMALL (0-5) Rubin/ul Urine Nitrite NEGATIVE (NEGATIVE) Urine Bilirubin NEGATIVE (NEGATIVE) Urine Urobilinogen NEGATIVE (0-1) mg/dL Ur Leukocyte Esterase TRACE (NEGATIVE) Urine WBC (Auto) 3-5 (0-5) /HPF Urine RBC (Auto) NONE (0-2) /HPF U Epithel Cells (Auto) RARE (FEW) /HPF Urine Bacteria (Auto) RARE (NEGATIVE) /HPF Urine Mucus (Auto) SLIGHT (NEGATIVE) /HPF Urine Culture Reflexed YES (NO) Urine Glucose NEGATIVE (NEGATIVE) mg/dL SARS-CoV-2 (PCR) (NEGATIVE) 07/22/20 07/22/20 Range/Units 05:15 05:15 WBC 10.7 H (4.0-10.5) K/mm3 RBC 4.51 (4.1-5.4) M/mm3 Hgb 13.4 (12.0-16.0) gm/dl Hct 40.9 (35-47) % MCV 90.7 (78-100) fl MCH 29.7 (26-32) pg MCHC 32.8 (32-36) g/dl RDW 13.6 (11.5-14.0) % Plt Count 315 (150-450) K/mm3 MPV 8.4 (7.5-11.0) fl Segmented Neutrophils 63 (36.0-66.0) % Band Neutrophils 1 (0.0-2.0) % Lymphocytes (Manual) 19 L (24-44) % Monocytes (Manual) 11 (0.0-12.0) % Eosinophils (Manual) 5 H (0.00-3.0) % Basophils (Manual) 1 (0.0-1.0) % Platelet Estimate NORMAL (NORMAL) RBC Morphology NORMAL D-Dimer (215-500) ng/mL Puncture Site pCO2 (35-45) mmHg pO2 (75-100) mmHg Base Excess (-2.0-2.0) O2 Saturation (94-100) g/dF ABG pH (7.35-7.45) ABG HCO3 (22-28) ABG O2 Sat (Measured) (95-100) % Florentin Test A-a Gradient a/A Ratio Hemoglobin Carboxyhemoglobin (0.0-6.9) % THgb Methemoglobin (1.4-1.5) % Temperature C POC O2 Flow Rate % Sodium 138 (137-145) mmol/L Potassium 4.5 (3.5-5.1) mmol/L Chloride 101 (98-107) mmol/L Carbon Dioxide 29 (22-30) mmol/L Anion Gap 12.0 (5-15) MEQ/L BUN 15 (7-17) mg/dL Creatinine 0.71 (0.52-1.04) mg/dL Estimated GFR > 60.0 ML/MIN Glucose 120 H (74-106) mg/dL Lactic Acid (0.4-2.0) Calcium 10.0 (8.4-10.2) mg/dL Magnesium 2.2 (1.6-2.3) mg/dL Total Bilirubin 0.40 (0.2-1.3) mg/dL AST 36 (14-36) U/L ALT 35 (0-35) U/L Alkaline Phosphatase 114 (38-126) U/L Troponin I (0.000-0.034) ng/mL NT-Pro-B Natriuret Pep 41.1 (0-900) pg/mL Serum Total Protein 7.8 (6.3-8.2) g/dL Albumin 4.4 (3.5-5.0) g/dL Urine Color (YELLOW) Urine Appearance (CLEAR) Urine pH (5-6) Ur Specific [place] (1.005-1.025) Urine Protein (Negative) Urine Ketones (NEGATIVE) Urine Blood (0-5) Rubin/ul Urine Nitrite (NEGATIVE) Urine Bilirubin (NEGATIVE) Urine Urobilinogen (0-1) mg/dL Ur Leukocyte Esterase (NEGATIVE) Urine WBC (Auto) (0-5) /HPF Urine RBC (Auto) (0-2) /HPF U Epithel Cells (Auto) (FEW) /HPF Urine Bacteria (Auto) (NEGATIVE) /HPF Urine Mucus (Auto) (NEGATIVE) /HPF Urine Culture Reflexed (NO) Urine Glucose (NEGATIVE) mg/dL SARS-CoV-2 (PCR) (NEGATIVE) - Progress Progress: improved Air Movement: fair Blood Culture(s) Obtained: Yes Antibiotics given: Yes Discussed with DrAmy: Shelton Paul Will see patient in: hospital (observation) Counseled pt/family regarding: lab results, diagnosis, need for follow-up, rad results <SUSY MENDOZA - Last Filed: 07/22/20 09:33> <INOCENCIO WATSON - Last Filed: 07/24/20 08:35> - Progress Progress Note: 54 years old is evaluated for worsening shortness of breath. Patient was in moderate distress on presentation, placed on oxygen, given steroid and inhaler treatment. Chest x-ray did not show obvious infiltrative process but patient has acute hypoxic and hypercapnic respiratory failure per ABG. Started on antibiotics. Discussed with and patient is admitted. (INOCENCIO WATSON) - Departure Departure Disposition: Observation Critical Care Time: Yes Critical Care Time(excluding separately billable procedures): Critical 30-74 mins <SUSY MENDOZA - Last Filed: 07/22/20 09:33> <INOCENCIO WATSON - Last Filed: 07/24/20 08:35> - Departure Clinical Impression: Shortness of breath Respiratory failure with hypoxia and hypercapnia Qualifiers: Chronicity: acute Qualified Code(s): J96.01 - Acute respiratory failure with hypoxia; J96.02 - Acute respiratory failure with hypercapnia Condition: Stable
[2020-07-22] MEDS ORDERED: solu-MEDROL 125 MG ONE (05:20)
[2020-07-22] MEDS ORDERED: ROCEPHIN 1 Gm-D5w 50 ml Bag** 1 G/50 ML IVPB IV ONE (05:32)
[2020-07-22] MEDS ORDERED: Zithromax 500 MG/ 250 ML NaCl Premix 500 MG/250 ML IVPB IV ONE (05:32)
[2020-07-22] MEDS ORDERED: Ativan 2 MG/1 ML VIAL IV ONE (05:46)
[2020-07-22] MEDS ORDERED: Ativan 2 MG/1 ML VIAL ONE (05:47)
[2020-07-22 05:58] LABS: Hematocrit 40.9 % (35-47); Hemoglobin 13.4 gm/dl (12.0-16.0); Mean Cell Volume 90.7 fl (78-100); Mean Corpuscular Hemoglobin 29.7 pg (26-32); Mean Corpuscular Hgb Concent. 32.8 g/dl (32-36); Mean Platelet Volume 8.4 fl (7.5-11.0); Platelet Count 315 K/mm3 (150-450); Red Blood Count 4.51 M/mm3 (4.1-5.4); Red Cell Distribution Width 13.6 % (11.5-14.0); White Blood Count 10.7 K/mm3 (4.0-10.5)
[2020-07-22 06:12] LABS: ALBUMIN 4.4 g/dL (3.5-5.0); ALKALINE PHOSPHATASE 114 U/L (38-126); BLOOD UREA NITROGEN 15 mg/dL (7-17); CHLORIDE 101 mmol/L (98-107); Carbon Dioxide 29 mmol/L (22-30); Creatinine 1 0.71 mg/dL (0.52-1.04); EST GLOMERULAR FILTRATION RATE > 60.0 ML/MIN; Glucose 120 mg/dL (74-106); MAGNESIUM 2.2 mg/dL (1.6-2.3); NT PRO BNP 41.1 pg/mL (0-900); Potassium 4.5 mmol/L (3.5-5.1); SGOT/AST 36 U/L (14-36); SGPT/ALT 35 U/L (0-35); SODIUM 138 mmol/L (137-145); Total Protein 7.8 g/dL (6.3-8.2)
[2020-07-22 06:27] LABS: BAND 1 % (0.0-2.0); Basophil 1 % (0.0-1.0); Eosinophil 5 % (0.00-3.0); Lymphocytes 19 % (24-44); Monocyte 11 % (0.0-12.0); Neutrophils 63 % (36.0-66.0); Platelet Estimate NORMAL (NORMAL); Total Cells Counted 100
[2020-07-22 06:55] LABS: A-aADO2 87; ABG HEMOGLOBIN 13.2; ABG POTASSIUM 4.3 (3.5-5.1); ARTERIAL BLD GAS O2 SATURATION 96.4 % (95-100); ARTERIAL BLOOD GAS BASE EXCESS 1.8 (-2.0-2.0); ARTERIAL BLOOD GAS FIO2 32 %; ARTERIAL BLOOD GAS PCO2 53 mmHg (35-45); ARTERIAL BLOOD GAS PO2 75 mmHg (75-100); ARTERIAL BLOOD GAS pH 7.34 (7.35-7.45); CARBOXYHEMOGLOBIN 1.8 % THgb (0.0-6.9); HCO3- 28.6 (22-28); HGB O2 SAT 93.9 g/dF (94-100); Lactic Acid 1.4 (0.4-2.0); Methhemoglobin 0.8 % (1.4-1.5); paO2 pAO1 0.46
[2020-07-22 06:56] LABS: ABG SITE RIGHT RADIAL; ALLEN TEST OK? YES
[2020-07-22 06:58] LABS: Appearance SLIGHTLY CLOUDY (CLEAR); Bacteria RARE /HPF (NEGATIVE); Bilirubin NEGATIVE (NEGATIVE); Blood SMALL Ery/ul (0-5); Epithelial Cells RARE /HPF (FEW); Glucose NEGATIVE (NEGATIVE); Ketones NEGATIVE (NEGATIVE); Leukocyte Esterase TRACE (NEGATIVE); Mucus SLIGHT /HPF (NEGATIVE); Nitrite NEGATIVE (NEGATIVE); Protein,Urine Dip NEGATIVE (Negative); Specific Gravity 1.012 (1.005-1.025); Urobilinogen NEGATIVE mg/dL (0-1)
--- NOTE | 2020-07-22 10:34 | XRAY ---
Indication: Short of breath. Comparison: May 30, 2020. Portable chest again demonstrates normal heart and lungs with incidental tiny calcified granulomas. Bony thorax intact. No new/acute findings.
[2020-07-22] MEDS ORDERED: HUMALOG SQ PRN (10:50)
[2020-07-22] MEDS ORDERED: ROCEPHIN 1 Gm-D5w 50 ml Bag** 1 G/50 ML IVPB IV SCH (10:50)
[2020-07-22] MEDS ORDERED: TYLENOL 325 MG PO PRN (10:50)
[2020-07-22] MEDS: DUONEB 0.5-3 MG/3 ml Neb IH SCH ×2 (12:05→19:24)
[2020-07-22] MEDS: solu-MEDROL 125 MG IV SCH ×2 (12:15→18:04)
[2020-07-22] MEDS: Pepcid 20 MG VIAL IV SCH ×2 (12:17→21:53)
[2020-07-22] MEDS: Sodium Chloride 0.9% 1000 ML 1,000 ML IV SCH ×2 (12:17→21:52)
[2020-07-22] MEDS ORDERED: PROVENTIL 2.5 MG/3 ML NEB IH PRN (12:23)
[2020-07-22] MEDS ORDERED: VENTOLIN COMMON CANISTER IH PRN (12:23)
[2020-07-22] MEDS ORDERED: DUONEB 0.5-3 MG/3 ml Neb IH SCH (13:00)
[2020-07-22] MEDS ORDERED: PRISTIQ ER PO SCH (13:00)
[2020-07-22] MEDS ORDERED: Abilify 10 MG PO SCH (13:00)
[2020-07-22] MEDS: BUSPAR 5 MG PO SCH ×2 (13:18→21:53)
[2020-07-22] MEDS: XANAX 1 MG PO SCH ×2 (16:16→21:53)
[2020-07-22] MEDS ORDERED: ZOCOR 20MG PO SCH (22:00)
[2020-07-23] MEDS: solu-MEDROL 125 MG IV SCH ×2 (02:16→06:27)
[2020-07-23 06:17] LABS: Hematocrit 38.6 % (35-47); Hemoglobin 12.4 gm/dl (12.0-16.0); Mean Cell Volume 92.6 fl (78-100); Mean Corpuscular Hemoglobin 29.7 pg (26-32); Mean Corpuscular Hgb Concent. 32.1 g/dl (32-36); Mean Platelet Volume 8.7 fl (7.5-11.0); Platelet Count 304 K/mm3 (150-450); Red Blood Count 4.17 M/mm3 (4.1-5.4); Red Cell Distribution Width 13.7 % (11.5-14.0); White Blood Count 17.6 K/mm3 (4.0-10.5)
[2020-07-23 06:41] LABS: ALKALINE PHOSPHATASE 94 U/L (38-126); BLOOD UREA NITROGEN 16 mg/dL (7-17); CHLORIDE 104 mmol/L (98-107); Calcium 9.3 mg/dL (8.4-10.2); Carbon Dioxide 28 mmol/L (22-30); Creatinine 1 0.66 mg/dL (0.52-1.04); EST GLOMERULAR FILTRATION RATE > 60.0 ML/MIN; Glucose 170 mg/dL (74-106); Potassium 4.4 mmol/L (3.5-5.1); SGOT/AST 26 U/L (14-36); SGPT/ALT 28 U/L (0-35); SODIUM 138 mmol/L (137-145); Total Protein 7.2 g/dL (6.3-8.2)
[2020-07-23] MEDS: DUONEB 0.5-3 MG/3 ml Neb IH SCH (07:13)
--- NOTE | 2020-07-23 07:21 | PCM.HP ---
History of Present Illness - Chief Complaint Chief Complaint: shortness of breath for 1 day History of Present Illness: is a 54 year old female.came to ER with c/o Shortness of breath for almost 1 week associated with cough productive thick green sputum copious in amount. Because of repeated coughing she is having pain in the lower chest george bilaterally. Subjective feeling of fever and chills. She has been using nebulizer at home with no significant relief. - Review of Systems Constitutional: No Fever, No Chills Eyes: No Symptoms Ears, Nose, & Throat: No Symptoms Respiratory: Orthopnea, Short Of Breath, Wheezing, No Cough Cardiac: No Chest Pain, No Edema, No Syncope Abdominal/Gastrointestinal: No Abdominal Pain, No Nausea, No Vomiting, No Diarrhea Genitourinary Symptoms: No Dysuria Musculoskeletal: No Back Pain, No Neck Pain Skin: No Rash Neurological: No Dizziness, No Focal Weakness, No Sensory Changes Psychological: No Symptoms Endocrine: No Symptoms Hematologic/Lymphatic: No Symptoms Immunological/Allergic: No Symptoms Medications & Allergies Home Medications: Home Medication List Albuterol 2.5 mg/3 ml Neb [Proventil 2.5 mg/3 ml Neb] 1 inh .ROUTE Q4H PRN 07/22/20 [History Confirmed 07/22/20] Albuterol Common Canister [Ventolin Common Canister] 2 puff IH QID PRN 07/22/20 [History Confirmed 07/22/20] Alprazolam 1 mg [Xanax 1 mg] 1 mg PO TID 07/22/20 [History Confirmed 07/22/20] Aripiprazole [Abilify] 15 mg PO DAILY 07/22/20 [History Confirmed 07/22/20] Buspirone HCl 5 mg [Buspar 5 mg] 5 mg PO BID 07/22/20 [History Confirmed 07/22/20] Desvenlafaxine Succinate [Pristiq ER] 100 mg PO DAILY 07/22/20 [History Confirmed 07/22/20] Pravastatin Sodium 40 mg PO DAILY 07/22/20 [History Confirmed 07/22/20] Allergies/Adverse Reactions: Allergies Allergy/AdvReac Type Severity Reaction Status Date / Time No Known Drug Allergies Allergy Verified 07/22/20 05:09 - Past Medical History Past Medical History: Yes Neurological History: No Pertinent History ENT History: No Pertinent History Cardiac History: No Pertinent History Respiratory History: Bronchitis Endocrine Medical History: No Pertinent History Musculoskelatal History: Degenerative Disk Disease GI Medical History: GERD, Ulcer, Other History: No Pertinent History Pyscho-Social History: Anxiety, Depression Reproductive Disorders: Cervical Cancer Comment: stage 1 cervical ca - Female History Hx Last Menstrual Period: hyster Are you now?: No - Past Surgical History Past Surgical History: Yes Neuro Surgical History: Other Cardiac History: No Pertinent History Respiratory Surgery: No Pertinent History GI Surgical History: No Pertinent History Genitourinary Surgical Hx: No Pertinent History Musculskeletal Surgical Hx: No Pertinent History, Orthopedic Surgery Female Surgical History: Hysterectomy, Tubal Ligation Other Surgical History: left elbow nerve decompression, back surgery, conization on cervix - Social History Smoking Status: Never smoker Exposure to second hand smoke: Yes Alcohol: None Drug Use: none - Physical Exam Vital Signs: Vital Signs - 24 hr Temp Pulse Resp BP Pulse Ox 07/23/20 04:00 98.3 F 88 16 157/75 93 L 07/23/20 00:00 98.3 F 102 H 16 147/73 96 07/22/20 23:33 93 H 18 96 07/22/20 20:00 98.7 F 94 H 26 H 174/83 92 L 07/22/20 19:28 92 H 30 H 92 L 07/22/20 16:00 98.6 F 101 H 18 155/79 92 L 07/22/20 12:26 92 H 18 89 L 07/22/20 12:00 98.8 F 92 H 18 141/82 89 L 07/22/20 10:57 98.8 F 98 H 20 141/82 88 L 07/22/20 09:13 20 141/99 97 07/22/20 08:24 98 H 20 139/86 96 Oxygen-Last 24 hours Oxygen Flowrate (L/min)-RT 6 Oxygen Flowrate (L/min)-RT 6 Oxygen Flowrate (L/min)-RT 6 General Appearance: no apparent distress, alert Neurologic Exam: alert, oriented x 3, cooperative, normal mood/affect, nml ce rebellar function, nml station & gait, sensation nml, No motor deficits Eye Exam: PERRL/EOMI, eyes nml inspection Ears, Nose, Throat Exam: normal ENT inspection, TMs normal, pharynx normal, moist mucous membranes Neck Exam: normal inspection, non-tender, supple, full range of motion Respiratory Exam: diminished breath sounds, accessory muscle use, wheezing, No respiratory distress Cardiovascular Exam: regular rate/rhythm, normal heart sounds, normal peripheral pulses Gastrointestinal/Abdomen Exam: soft, normal bowel sounds, No tenderness, No mass Back Exam: normal inspection, normal range of motion, No CVA tenderness, No vertebral tenderness Extremity Exam: normal inspection, normal range of motion, pelvis stable Skin Exam: normal color, warm, dry, No rash Lymphatic Exam: No adenopathy Results - Labs Lab/Micro Results: Lab Results-Last 24 Hours 07/22/20 07/22/20 07/23/20 Range/Units 07:24 08:33 05:33 WBC 17.6 H (4.0-10.5) K/mm3 RBC 4.17 (4.1-5.4) M/mm3 Hgb 12.4 (12.0-16.0) gm/dl Hct 38.6 (35-47) % MCV 92.6 (78-100) fl MCH 29.7 (26-32) pg MCHC 32.1 (32-36) g/dl RDW 13.7 (11.5-14.0) % Plt Count 304 (150-450) K/mm3 MPV 8.7 (7.5-11.0) fl Sodium (137-145) mmol/L Potassium (3.5-5.1) mmol/L Chloride (98-107) mmol/L Carbon Dioxide (22-30) mmol/L Anion Gap (5-15) MEQ/L BUN (7-17) mg/dL Creatinine (0.52-1.04) mg/dL Estimated GFR ML/MIN Glucose (74-106) mg/dL Calcium (8.4-10.2) mg/dL Total Bilirubin (0.2-1.3) mg/dL AST (14-36) U/L ALT (0-35) U/L Alkaline Phosphatase (38-126) U/L Troponin I < 0.012 (0.000-0.034) ng/mL Serum Total Protein (6.3-8.2) g/dL Albumin (3.5-5.0) g/dL SARS-CoV-2 (PCR) NEGATIVE (NEGATIVE) 07/23/20 Range/Units 05:33 WBC (4.0-10.5) K/mm3 RBC (4.1-5.4) M/mm3 Hgb (12.0-16.0) gm/dl Hct (35-47) % MCV (78-100) fl MCH (26-32) pg MCHC (32-36) g/dl RDW (11.5-14.0) % Plt Count (150-450) K/mm3 MPV (7.5-11.0) fl Sodium 138 (137-145) mmol/L Potassium 4.4 (3.5-5.1) mmol/L Chloride 104 (98-107) mmol/L Carbon Dioxide 28 (22-30) mmol/L Anion Gap 10.0 (5-15) MEQ/L BUN 16 (7-17) mg/dL Creatinine 0.66 (0.52-1.04) mg/dL Estimated GFR > 60.0 ML/MIN Glucose 170 H (74-106) mg/dL Calcium 9.3 (8.4-10.2) mg/dL Total Bilirubin 0.30 (0.2-1.3) mg/dL AST 26 (14-36) U/L ALT 28 (0-35) U/L Alkaline Phosphatase 94 (38-126) U/L Troponin I (0.000-0.034) ng/mL Serum Total Protein 7.2 (6.3-8.2) g/dL Albumin 4.0 (3.5-5.0) g/dL SARS-CoV-2 (PCR) (NEGATIVE) - Radiology Impressions Radiology Exams & Impressions: Radiology Procedures Category Date Time Status CHEST 1 VIEW (PORTABLE) Stat Exams 07/22/20 05:13 Completed RAD/CHEST 1 VIEW (PORTABLE) Indication: Short of breath. Comparison: May 30, 2020. Portable chest again demonstrates normal heart and lungs with incidental tiny calcified granulomas. Bony thorax intact. No new/acute findings. - Other Procedures and Tests Respiratory Therapy 07/22/20 10:50 Oxygen Nasal Cannula 2 lpm 07/22/20 12:24 Respiratory Therapy Assessment DAILY 07/22/20 19:32 FLUTTER [Flutter Therapy] UD Assessment/Plan (1) Respiratory failure with hypoxia and hypercapnia Current Visit: Yes Status: Acute Qualifiers: Chronicity: acute Qualified Code(s): J96.01 - Acute respiratory failure with hypoxia; J96.02 - Acute respiratory failure with hypercapnia Assessment & Plan: Last Vital Signs Temp 98.3 F 07/23/20 04:00 Pulse 88 07/23/20 04:00 Resp 16 07/23/20 04:00 BP 157/75 07/23/20 04:00 Pulse Ox 93 L 07/23/20 04:00 Allergies No Known Drug Allergies Allergy (Verified 07/22/20 05:09) Active Medications Acetaminophen (Tylenol 325 Mg) 650 mg PO Q4H PRN PRN PRN Reason: PAIN AND/OR FEVER Stop: 08/21/20 10:49 Albuterol Sulfate (Ventolin Common Canister) 2 puff IH QID PRN PRN PRN Reason: sob Stop: 08/21/20 12:22 Albuterol Sulfate (Proventil 2.5 Mg/3 Ml Neb) 2.5 mg IH Q4H PRN PRN PRN Reason: sob Stop: 08/21/20 12:22 Last Admin: 07/22/20 23:20 Dose: 2.5 mg Documented by: Albuterol/Ipratropium (Duoneb 0.5-3 Mg/3 Ml Neb) 3 ml IH QIDRT [facility] Stop: 08/21/20 10:59 Last Admin: 07/23/20 07:13 Dose: 3 ml Documented by: Alprazolam (Xanax 1 Mg) 1 mg PO TID [facility] Stop: 08/21/20 14:59 Last Admin: 07/22/20 21:53 Dose: 1 mg Documented by: Aripiprazole (Abilify 10 Mg) 15 mg PO DAILY [facility] Stop: 08/21/20 12:59 Last Admin: 07/22/20 13:18 Dose: 15 mg Documented by: Buspirone HCl (Buspar 5 Mg) 5 mg PO BID [facility] Stop: 08/21/20 12:44 Last Admin: 07/22/20 21:53 Dose: 5 mg Documented by: Desvenlafaxine Succinate (Pristiq Er) 100 mg PO DAILY [facility] Stop: 08/21/20 12:59 Last Admin: 07/22/20 13:17 Dose: 100 mg Documented by: Famotidine (Pepcid 20 Mg Vial) 20 mg IV Q12HT [facility] Stop: 08/21/20 10:49 Last Admin: 07/22/20 21:53 Dose: 20 mg Documented by: Azithromycin (Zithromax 500 Mg/ 250 Ml Nacl Premix) 500 mg in 250 mls @ 250 mls/hr IV Q24H10 [facility] Stop: 08/22/20 09:59 Sodium Chloride (Sodium Chloride 0.9% 1000 Ml) 1,000 mls @ 100 mls/hr IV .Q10H [facility] Stop: 08/21/20 10:49 Last Admin: 07/22/20 21:52 Dose: 100 mls/hr Documented by: Ceftriaxone Sodium/Dextrose (Rocephin 1 Gm-D5w 50 Ml Bag) 1 g in 50 mls @ 100 mls/hr IV Q24H10 [facility] Stop: 08/22/20 09:59 Insulin Human Lispro (Humalog) 0 unit SQ UD PRN PRN Reason: HYPERGLYCEMIA Stop: 08/21/20 10:49 Methylprednisolone Sodium Succinate (Solu-Medrol 125 Mg) 80 mg IV Q6HT [facility] Stop: 08/21/20 11:59 Last Admin: 07/23/20 06:27 Dose: 80 mg Documented by: Simvastatin (Zocor 20mg) 40 mg PO HS [facility] Stop: 08/21/20 21:59 Last Admin: 07/22/20 21:53 Dose: 40 mg Documented by: Intake & Output 07/22/20 07/23/20 11:59 11:59 Intake Total 5124 Balance 5124 Weight 91.4 kg Orders 07/22/20 10:17 Telemetry q6h 07/22/20 10:50 NaCl 0.9% 1000 ml [Sodium Chloride 0.9% 1000 ML] 1,000 ml IV 100 mls/hr 07/22/20 10:50 Code Status Order ROUTINE IV Care Q6H 07/22/20 12:23 Albuterol 2.5 mg/3 ml Neb [Proventil 2.5 mg/3 ml Neb] 2.5 mg IH Q4H PRN PRN Albuterol Common Canister [Ventolin Common Canister] 2 puff IH QID PRN PRN 07/22/20 12:24 Pulse Oximetry .spot check Respiratory Therapy Assessment DAILY 07/22/20 12:45 Buspirone HCl 5 mg [Buspar 5 mg] 5 mg PO BID 07/22/20 13:00 Aripiprazole 10 mg [Abilify 10 MG] 15 mg PO DAILY Desvenlafaxine Succinate [Pristiq ER] 100 mg PO DAILY 07/22/20 15:00 Alprazolam 1 mg [Xanax 1 mg] 1 mg PO TID 07/22/20 22:00 Simvastatin 20Mg [Zocor 20Mg] 40 mg PO HS 07/23/20 10:00 Ceftriaxone 1 GM/50 ML PREMIX* [ROCEPHIN 1 Gm-D5w 50 ml Bag] 1 g in 50 ml IV Q24H10 Lab Tests 07/22/20 07/22/20 07/23/20 07:24 08:33 05:33 WBC 17.6 H RBC 4.17 Hgb 12.4 Hct 38.6 MCV 92.6 MCH 29.7 MCHC 32.1 RDW 13.7 Plt Count 304 MPV 8.7 Sodium Potassium Chloride Carbon Dioxide Anion Gap BUN Creatinine Estimated GFR Glucose Calcium Total Bilirubin AST ALT Alkaline Phosphatase Troponin I < 0.012 Serum Total Protein Albumin SARS-CoV-2 (PCR) NEGATIVE 07/23/20 05:33 WBC RBC Hgb Hct MCV MCH MCHC RDW Plt Count MPV Sodium 138 Potassium 4.4 Chloride 104 Carbon Dioxide 28 Anion Gap 10.0 BUN 16 Creatinine 0.66 Estimated GFR > 60.0 Glucose 170 H Calcium 9.3 Total Bilirubin 0.30 AST 26 ALT 28 Alkaline Phosphatase 94 Troponin I Serum Total Protein 7.2 Albumin 4.0 SARS-CoV-2 (PCR) Code(s): J96.91 - RESPIRATORY FAILURE, UNSPECIFIED WITH HYPOXIA; J96.92 - RESPIRATORY FAILURE, UNSPECIFIED WITH HYPERCAPNIA (2) Shortness of breath Current Visit: Yes Status: Acute Assessment & Plan: Chief Complaint Diagnosis sob Allergies Allergy/AdvReac Type Severity Reaction Status Date / Time No Known Drug Allergies Allergy Verified 07/22/20 05:09 Vital Signs (Last 24 hours) Temp Pulse Resp BP Pulse Ox 07/23/20 04:00 98.3 F 88 16 157/75 93 L 07/23/20 00:00 98.3 F 102 H 16 147/73 96 07/22/20 23:33 93 H 18 96 07/22/20 20:00 98.7 F 94 H 26 H 174/83 92 L 07/22/20 19:28 92 H 30 H 92 L 07/22/20 16:00 98.6 F 101 H 18 155/79 92 L 07/22/20 12:26 92 H 18 89 L 07/22/20 12:00 98.8 F 92 H 18 141/82 89 L 07/22/20 10:57 98.8 F 98 H 20 141/82 88 L 07/22/20 09:13 20 141/99 97 07/22/20 08:24 98 H 20 139/86 96 Home Medications Medication Instructions Recorded Confirmed Last Taken Type Albuterol 2.5 mg/3 ml Neb 1 inh .ROUTE Q4H PRN 07/22/20 07/22/20 07/21/20 History [Proventil 2.5 mg/3 ml Neb] Albuterol Common Canister 2 puff IH QID PRN 07/22/20 07/22/20 07/21/20 History [Ventolin Common Canister] Alprazolam 1 mg [Xanax 1 mg] 1 mg PO TID 07/22/20 07/22/20 07/21/20 History Aripiprazole [Abilify] 15 mg PO DAILY 07/22/20 07/22/20 07/21/20 History Buspirone HCl 5 mg [Buspar 5 5 mg PO BID 07/22/20 07/22/20 07/21/20 History mg] Desvenlafaxine Succinate [Pristiq 100 mg PO DAILY 07/22/20 07/22/20 07/21/20 History ER] Pravastatin Sodium 40 mg PO DAILY 07/22/20 07/22/20 07/21/20 History Current Medications Generic Name Dose Route Start Last Admin Trade Name Freq PRN Reason Stop Dose Admin Acetaminophen 650 mg 07/22/20 10:50 Tylenol 325 Mg PO 08/21/20 10:49 Q4H PRN PRN PAIN AND/OR FEVER Albuterol Sulfate 2 puff 07/22/20 12:23 Ventolin Common Canister IH 08/21/20 12:22 QID PRN PRN sob Albuterol Sulfate 2.5 mg 07/22/20 12:23 07/22/20 23:20 Proventil 2.5 Mg/3 Ml Neb IH 08/21/20 12:22 2.5 mg Q4H PRN PRN Administration sob Albuterol/Ipratropium 3 ml 07/22/20 11:00 07/23/20 07:13 Duoneb 0.5-3 Mg/3 Ml Neb IH 08/21/20 10:59 3 ml QIDRT [facility] Administration Alprazolam 1 mg 07/22/20 15:00 07/22/20 21:53 Xanax 1 Mg PO 08/21/20 14:59 1 mg TID [facility] Administration Aripiprazole 15 mg 07/22/20 13:00 07/22/20 13:18 Abilify 10 Mg PO 08/21/20 12:59 15 mg DAILY [facility] Administration Buspirone HCl 5 mg 07/22/20 12:45 07/22/20 21:53 Buspar 5 Mg PO 08/21/20 12:44 5 mg BID [facility] Administration Desvenlafaxine Succinate 100 mg 07/22/20 13:00 07/22/20 13:17 Pristiq Er PO 08/21/20 12:59 100 mg DAILY [facility] Administration Famotidine 20 mg 07/22/20 10:50 07/22/20 21:53 Pepcid 20 Mg Vial IV 08/21/20 10:49 20 mg Q12HT [facility] Administration Azithromycin 500 mg in 250 mls @ 250 mls/hr 07/23/20 10:00 Zithromax 500 Mg/ 250 Ml Nacl Premix IV 08/22/20 09:59 Q24H10 [facility] Sodium Chloride 1,000 mls @ 100 mls/hr 07/22/20 10:50 07/22/20 21:52 Sodium Chloride 0.9% 1000 Ml IV 08/21/20 10:49 100 mls/hr .Q10H [facility] Administration Ceftriaxone Sodium/Dextrose 1 g in 50 mls @ 100 mls/hr 07/23/20 10:00 Rocephin 1 Gm-D5w 50 Ml Bag IV 08/22/20 09:59 Q24H10 [facility] Insulin Human Lispro 0 unit 07/22/20 10:50 Humalog SQ 08/21/20 10:49 UD PRN HYPERGLYCEMIA Methylprednisolone Sodium Succinate 80 mg 07/22/20 12:00 07/23/20 06:27 Solu-Medrol 125 Mg IV 08/21/20 11:59 80 mg Q6HT [facility] Administration Simvastatin 40 mg 07/22/20 22:00 07/22/20 21:53 Zocor 20mg PO 08/21/20 21:59 40 mg HS [facility] Administration Discontinued Medications Generic Name Dose Route Start Last Admin Trade Name Freq PRN Reason Stop Dose Admin Albuterol/Ipratropium 3 ml 07/22/20 05:12 07/22/20 06:56 Duoneb 0.5-3 Mg/3 Ml Neb IH 07/22/20 05:13 3 ml STAT ONE Administration Albuterol/Ipratropium Confirm 07/22/20 06:39 Duoneb 0.5-3 Mg/3 Ml Neb Administered 07/22/20 06:40 Dose 3 ml IH .STK-MED ONE Albuterol/Ipratropium 3 ml 07/22/20 13:00 Duoneb 0.5-3 Mg/3 Ml Neb IH 08/21/20 12:59 Q6HRT [facility] Ceftriaxone Sodium/Dextrose 1 g in 50 mls @ 100 mls/hr 07/22/20 05:12 07/22/20 06:14 Rocephin 1 Gm-D5w 50 Ml Bag IV 07/22/20 05:41 Infused STAT STA Infusion Azithromycin 500 mg in 250 mls @ 250 mls/hr 07/22/20 05:12 07/22/20 07:16 Zithromax 500 Mg/ 250 Ml Nacl Premix IV 07/22/20 06:11 Infused STAT STA Infusion Azithromycin Confirm 07/22/20 05:32 Zithromax 500 Mg/ 250 Ml Nacl Premix Administered 07/22/20 05:33 Dose 500 mg in 250 mls @ ud IV .STK-MED ONE Ceftriaxone Sodium/Dextrose Confirm 07/22/20 05:32 Rocephin 1 Gm-D5w 50 Ml Bag Administered 07/22/20 05:33 Dose 1 g in 50 mls @ ud IV .STK-MED ONE Ceftriaxone Sodium/Dextrose 1 g in 50 mls @ 100 mls/hr 07/22/20 10:50 Rocephin 1 Gm-D5w 50 Ml Bag IV 08/21/20 10:49 Q24H10 [facility] Lorazepam 1 mg 07/22/20 05:46 07/22/20 05:49 Ativan 2 Mg/1 Ml Vial IV 07/22/20 05:47 1 mg STAT ONE Administration Lorazepam Confirm 07/22/20 05:47 Ativan 2 Mg/1 Ml Vial Administered 07/22/20 05:48 Dose 2 mg .ROUTE .STK-MED ONE Methylprednisolone Sodium Succinate 125 mg 07/22/20 05:12 07/22/20 05:21 Solu-Medrol 125 Mg IV 07/22/20 05:13 125 mg STAT ONE Administration Methylprednisolone Sodium Succinate Confirm 07/22/20 05:20 Solu-Medrol 125 Mg Administered 07/22/20 05:21 Dose 125 mg .ROUTE .STK-MED ONE Intake & Output (Last 24 hours) 07/20/20 07/21/20 07/22/20 07/23/20 11:59 11:59 11:59 11:59 Intake Total 5124 Balance 5124 Weight 91.4 kg Microbiology Results (Last 24 hours) 07/22/20 06:35 Clean Catch Midstream Urine Culture - Pending 07/22/20 05:35 Blood Blood Culture Gram Stain - Pending 07/22/20 05:35 Blood Blood Culture - Pending 07/22/20 05:15 Blood Blood Culture Gram Stain - Pending 07/22/20 05:15 Blood Blood Culture - Pending Laboratory Results (Last 24 hours) 07/23/20 07/23/20 07/22/20 05:33 05:33 08:33 WBC 17.6 H RBC 4.17 Hgb 12.4 Hct 38.6 MCV 92.6 MCH 29.7 MCHC 32.1 RDW 13.7 Plt Count 304 MPV 8.7 Sodium 138 Potassium 4.4 Chloride 104 Carbon Dioxide 28 Anion Gap 10.0 BUN 16 Creatinine 0.66 Estimated GFR > 60.0 Glucose 170 H Calcium 9.3 Total Bilirubin 0.30 AST 26 ALT 28 Alkaline Phosphatase 94 Troponin I < 0.012 Serum Total Protein 7.2 Albumin 4.0 SARS-CoV-2 (PCR) 07/22/20 07:24 WBC RBC Hgb Hct MCV MCH MCHC RDW Plt Count MPV Sodium Potassium Chloride Carbon Dioxide Anion Gap BUN Creatinine Estimated GFR Glucose Calcium Total Bilirubin AST ALT Alkaline Phosphatase Troponin I Serum Total Protein Albumin SARS-CoV-2 (PCR) NEGATIVE Orders (Last 24 hours) Category Date Time Status Up With Assistance ROUTINE Activity 07/22/20 10:50 Active Code Status Order ROUTINE Care 07/22/20 10:50 Active Code Status Order ROUTINE Care 07/22/20 10:50 Active Fall Protocol ROUTINE Care 07/22/20 10:50 Active IV Care Q6H Care 07/22/20 10:50 Active IV Care Q6H Care 07/22/20 10:[address] in Observation ROUTINE Care 07/22/20 10:50 Active [place], Apply ROUTINE Care 07/22/20 10:50 Completed Telemetry q6h Care 07/22/20 10:17 Active Heart-Healthy Diet Diet 07/22/20 Breakfast Active ARTERIAL BLOOD GASES Stat Lab 07/22/20 06:47 Completed CBC W DIFF AM.LAB Lab 07/23/20 05:33 Completed CMP AM.LAB Lab 07/23/20 05:33 Completed CULTURE,URINE Stat Lab 07/22/20 06:35 Received Lactic Acid Stat Lab 07/22/20 06:47 Completed Manual Differential NC Routine Lab 07/23/20 05:33 Completed TROPONIN Q3H Lab 07/22/20 08:33 Completed UA W/RFX UR CULTURE Stat Lab 07/22/20 06:35 Completed Acetaminophen 325 mg [Tylenol 325 mg] Med 07/22/20 10:50 Active 650 mg PO Q4H PRN PRN Albuterol 2.5 mg/3 ml Neb [Proventil 2.5 mg/3 ml Neb Med 07/22/20 12:23 Active ] 2.5 mg IH Q4H PRN PRN Albuterol Common Canister [Ventolin Common Canister* Med 07/22/20 12:23 Active ] 2 puff IH QID PRN PRN Albuterol/Ipratropium 3ml Neb* [DUONEB 0.5-3 MG/3 ml Med 07/22/20 06:39 Discontinued Neb] 3 ml IH .STK-MED ONE Albuterol/Ipratropium 3ml Neb* [DUONEB 0.5-3 MG/3 ml Med 07/22/20 13:00 Discontinued Neb] 3 ml IH Q6HRT Albuterol/Ipratropium 3ml Neb* [DUONEB 0.5-3 MG/3 ml Med 07/22/20 11:00 Active Neb] 3 ml IH QIDRT Alprazolam 1 mg [Xanax 1 mg] Med 07/22/20 15:00 Active 1 mg PO TID Aripiprazole 10 mg [Abilify 10 MG] Med 07/22/20 13:00 Active 15 mg PO DAILY Azithromycin 500 mg/250 ml [Zithromax 500 MG/ 250 ML Med 07/23/20 10:00 Active NaCl Premix] 500 mg in 250 ml IV Q24H10 Buspirone HCl 5 mg [Buspar 5 mg] Med 07/22/20 12:45 Active 5 mg PO BID Ceftriaxone 1 GM/50 ML PREMIX* [ROCEPHIN 1 Gm-D5w 50 ml Med 07/22/20 10:50 Discontinued Bag] 1 g in 50 ml IV Q24H10 Ceftriaxone 1 GM/50 ML PREMIX* [ROCEPHIN 1 Gm-D5w 50 ml Med 07/23/20 10:00 Active Bag] 1 g in 50 ml IV Q24H10 Desvenlafaxine Succinate [Pristiq ER] Med 07/22/20 13:00 Active 100 mg PO DAILY Famotidine 20 mg Vial [Pepcid 20 MG VIAL] Med 07/22/20 10:50 Active 20 mg IV Q12HT Insulin Lispro [Humalog] Med 07/22/20 10:50 Active See Dose Instructions SQ UD PRN Methylprednis Sod Succ 125 mg* [solu-MEDROL 125 MG] Med 07/22/20 12:00 Active 80 mg IV Q6HT NaCl 0.9% 1000 ml [Sodium Chloride 0.9% 1000 ML] 1,000 Med 07/22/20 10:50 Active ml IV 100 mls/hr Simvastatin 20Mg [Zocor 20Mg] Med 07/22/20 22:00 Active 40 mg PO HS FLUTTER [Flutter Therapy] UD RT 07/22/20 19:32 Active Oxygen Nasal Cannula 2 lpm RT 07/22/20 10:50 Active Pulse Oximetry .spot check RT 07/22/20 12:24 Active Respiratory Therapy Assessment DAILY RT 07/22/20 06:56 Completed Respiratory Therapy Assessment DAILY RT 07/22/20 12:24 Active Respiratory Therapy Consult ROUTINE RT 07/22/20 10:50 Completed Code(s): R06.02 - SHORTNESS OF BREATH (3) Chest pain, non-cardiac Current Visit: Yes Status: Resolved Code(s): R07.89 - OTHER CHEST PAIN
[2020-07-23 07:22] VITALS: BP 145/76
[2020-07-23 07:22] LABS: Lymphocytes 14 % (24-44); Monocyte 1 % (0.0-12.0); Neutrophils 85 % (36.0-66.0); Total Cells Counted 100
[2020-07-23 07:23] LABS: Platelet Estimate NORMAL (NORMAL)
[2020-07-23 07:25] VITALS: PULSE 86
[2020-07-23] MEDS: Sodium Chloride 0.9% 1000 ML 1,000 ML IV SCH (08:00)
--- NOTE | 2020-07-23 09:02 | PCM.DS ---
Discharge Summary Date of Admission: 07/22/20 10:17 Admitting Physician: SUSY MENDOZA Primary Care Provider: GINNY BUSTAMANTE Allergies Allergies No Known Drug Allergies Allergy (Verified 07/22/20 05:09) Hospital Summary - Hospital Course Hospital Course: Chief Complaint Diagnosis shortness of breath for 1 day Allergies Allergy/AdvReac Type Severity Reaction Status Date / Time No Known Drug Allergies Allergy Verified 07/22/20 05:09 Vital Signs (Last 24 hours) Temp Pulse Resp BP Pulse Ox 07/23/20 07:22 98.3 F 76 18 145/76 95 07/23/20 04:00 98.3 F 88 16 157/75 93 L 07/23/20 00:00 98.3 F 102 H 16 147/73 96 07/22/20 23:33 93 H 18 96 07/22/20 20:00 98.7 F 94 H 26 H 174/83 92 L 07/22/20 19:28 92 H 30 H 92 L 07/22/20 16:00 98.6 F 101 H 18 155/79 92 L 07/22/20 12:26 92 H 18 89 L 07/22/20 12:00 98.8 F 92 H 18 141/82 89 L 07/22/20 10:57 98.8 F 98 H 20 141/82 88 L 07/22/20 09:13 20 141/99 97 Home Medications Medication Instructions Recorded Confirmed Last Taken Type Albuterol 2.5 mg/3 ml Neb 1 inh .ROUTE Q4H PRN 07/22/20 07/22/20 07/21/20 History [Proventil 2.5 mg/3 ml Neb] Albuterol Common Canister 2 puff IH QID PRN 07/22/20 07/22/20 07/21/20 History [Ventolin Common Canister] Alprazolam 1 mg [Xanax 1 mg] 1 mg PO TID 07/22/20 07/22/20 07/21/20 History Aripiprazole [Abilify] 15 mg PO DAILY 07/22/20 07/22/20 07/21/20 History Buspirone HCl 5 mg [Buspar 5 5 mg PO BID 07/22/20 07/22/20 07/21/20 History mg] Desvenlafaxine Succinate [Pristiq] 100 mg PO DAILY 07/22/20 07/22/20 07/21/20 History Pravastatin Sodium 40 mg PO DAILY 07/22/20 07/22/20 07/21/20 History Azithromycin [Zithromax] 0 mg PO UD 5 Days #6 tablet 07/23/20 Unknown Rx Methylprednisolone Packet 0 mg PO UD #1 packet 07/23/20 Unknown Rx [Medrol Dosepack] Current Medications Generic Name Dose Route Start Last Admin Trade Name Freq PRN Reason Stop Dose Admin Acetaminophen 650 mg 07/22/20 10:50 Tylenol 325 Mg PO 08/21/20 10:49 Q4H PRN PRN PAIN AND/OR FEVER Albuterol Sulfate 2 puff 07/22/20 12:23 Ventolin Common Canister IH 08/21/20 12:22 QID PRN PRN sob Albuterol Sulfate 2.5 mg 07/22/20 12:23 07/22/20 23:20 Proventil 2.5 Mg/3 Ml Neb IH 08/21/20 12:22 2.5 mg Q4H PRN PRN Administration sob Albuterol/Ipratropium 3 ml 07/22/20 11:00 07/23/20 07:13 Duoneb 0.5-3 Mg/3 Ml Neb IH 08/21/20 10:59 3 ml QIDRT OPHELIA Administration Alprazolam 1 mg 07/22/20 15:00 07/22/20 21:53 Xanax 1 Mg PO 08/21/20 14:59 1 mg TID OPHELIA Administration Aripiprazole 15 mg 07/22/20 13:00 07/22/20 13:18 Abilify 10 Mg PO 08/21/20 12:59 15 mg DAILY OPHELIA Administration Buspirone HCl 5 mg 07/22/20 12:45 07/22/20 21:53 Buspar 5 Mg PO 08/21/20 12:44 5 mg BID OPHELIA Administration Desvenlafaxine Succinate 100 mg 07/22/20 13:00 07/22/20 13:17 Pristiq Er PO 08/21/20 12:59 100 mg DAILY OPHELIA Administration Famotidine 20 mg 07/22/20 10:50 07/22/20 21:53 Pepcid 20 Mg Vial IV 08/21/20 10:49 20 mg Q12HT OPHELIA Administration Azithromycin 500 mg in 250 mls @ 250 mls/hr 07/23/20 10:00 Zithromax 500 Mg/ 250 Ml Nacl Premix IV 08/22/20 09:59 Q24H10 OPHELIA Sodium Chloride 1,000 mls @ 100 mls/hr 07/22/20 10:50 07/23/20 08:00 Sodium Chloride 0.9% 1000 Ml IV 08/21/20 10:49 100 mls/hr .Q10H OPHELIA Administration Ceftriaxone Sodium/Dextrose 1 g in 50 mls @ 100 mls/hr 07/23/20 10:00 Rocephin 1 Gm-D5w 50 Ml Bag IV 08/22/20 09:59 Q24H10 OPHELIA Insulin Human Lispro 0 unit 07/22/20 10:50 Humalog SQ 08/21/20 10:49 UD PRN HYPERGLYCEMIA Methylprednisolone Sodium Succinate 80 mg 07/22/20 12:00 07/23/20 06:27 Solu-Medrol 125 Mg IV 08/21/20 11:59 80 mg Q6HT OPHELIA Administration Simvastatin 40 mg 07/22/20 22:00 07/22/20 21:53 Zocor 20mg PO 08/21/20 21:59 40 mg HS OPHELIA Administration Discontinued Medications Generic Name Dose Route Start Last Admin Trade Name Freq PRN Reason Stop Dose Admin Albuterol/Ipratropium 3 ml 07/22/20 05:12 07/22/20 06:56 Duoneb 0.5-3 Mg/3 Ml Neb IH 07/22/20 05:13 3 ml STAT ONE Administration Albuterol/Ipratropium Confirm 07/22/20 06:39 Duoneb 0.5-3 Mg/3 Ml Neb Administered 07/22/20 06:40 Dose 3 ml IH .STK-MED ONE Albuterol/Ipratropium 3 ml 07/22/20 13:00 Duoneb 0.5-3 Mg/3 Ml Neb IH 08/21/20 12:59 Q6HRT OPHELIA Ceftriaxone Sodium/Dextrose 1 g in 50 mls @ 100 mls/hr 07/22/20 05:12 07/22/20 06:14 Rocephin 1 Gm-D5w 50 Ml Bag IV 07/22/20 05:41 Infused STAT STA Infusion Azithromycin 500 mg in 250 mls @ 250 mls/hr 07/22/20 05:12 07/22/20 07:16 Zithromax 500 Mg/ 250 Ml Nacl Premix IV 07/22/20 06:11 Infused STAT STA Infusion Azithromycin Confirm 07/22/20 05:32 Zithromax 500 Mg/ 250 Ml Nacl Premix Administered 07/22/20 05:33 Dose 500 mg in 250 mls @ ud IV .STK-MED ONE Ceftriaxone Sodium/Dextrose Confirm 07/22/20 05:32 Rocephin 1 Gm-D5w 50 Ml Bag Administered 07/22/20 05:33 Dose 1 g in 50 mls @ ud IV .STK-MED ONE Ceftriaxone Sodium/Dextrose 1 g in 50 mls @ 100 mls/hr 07/22/20 10:50 Rocephin 1 Gm-D5w 50 Ml Bag IV 08/21/20 10:49 Q24H10 OPHELIA Lorazepam 1 mg 07/22/20 05:46 07/22/20 05:49 Ativan 2 Mg/1 Ml Vial IV 07/22/20 05:47 1 mg STAT ONE Administration Lorazepam Confirm 07/22/20 05:47 Ativan 2 Mg/1 Ml Vial Administered 07/22/20 05:48 Dose 2 mg .ROUTE .STK-MED ONE Methylprednisolone Sodium Succinate 125 mg 07/22/20 05:12 07/22/20 05:21 Solu-Medrol 125 Mg IV 07/22/20 05:13 125 mg STAT ONE Administration Methylprednisolone Sodium Succinate Confirm 07/22/20 05:20 Solu-Medrol 125 Mg Administered 07/22/20 05:21 Dose 125 mg .ROUTE .STK-MED ONE Intake & Output (Last 24 hours) 07/20/20 07/21/20 07/22/20 07/23/20 11:59 11:59 11:59 11:59 Intake Total 5124 Balance 5124 Weight 91.4 kg Microbiology Results (Last 24 hours) 07/22/20 06:35 Clean Catch Midstream Urine Culture - Pending 07/22/20 05:35 Blood Blood Culture Gram Stain - Pending 07/22/20 05:35 Blood Blood Culture - Pending 07/22/20 05:15 Blood Blood Culture Gram Stain - Pending 07/22/20 05:15 Blood Blood Culture - Pending Laboratory Results (Last 24 hours) 07/23/20 07/23/20 05:33 05:33 WBC 17.6 H RBC 4.17 Hgb 12.4 Hct 38.6 MCV 92.6 MCH 29.7 MCHC 32.1 RDW 13.7 Plt Count 304 MPV 8.7 Segmented Neutrophils 85 H Lymphocytes (Manual) 14 L Monocytes (Manual) 1 Platelet Estimate NORMAL RBC Morphology NORMAL Sodium 138 Potassium 4.4 Chloride 104 Carbon Dioxide 28 Anion Gap 10.0 BUN 16 Creatinine 0.66 Estimated GFR > 60.0 Glucose 170 H Calcium 9.3 Total Bilirubin 0.30 AST 26 ALT 28 Alkaline Phosphatase 94 Serum Total Protein 7.2 Albumin 4.0 Orders (Last 24 hours) Category Date Time Status Up With Assistance ROUTINE Activity 07/22/20 10:50 Active Code Status Order ROUTINE Care 07/22/20 10:50 Active Code Status Order ROUTINE Care 07/22/20 10:50 Active Fall Protocol ROUTINE Care 07/22/20 10:50 Active IV Care Q6H Care 07/22/20 10:50 Active IV Care Q6H Care 07/22/20 10:[address] in Observation ROUTINE Care 07/22/20 10:50 Active Doris Anand ROUTINE Care 07/22/20 10:50 Completed Telemetry q6h Care 07/22/20 10:17 Active CBC W DIFF AM.LAB Lab 07/23/20 05:33 Completed CMP AM.LAB Lab 07/23/20 05:33 Completed Manual Differential NC Routine Lab 07/23/20 05:33 Completed TROPONIN Q3H Lab 07/22/20 08:33 Completed Acetaminophen 325 mg [Tylenol 325 mg] Med 07/22/20 10:50 Active 650 mg PO Q4H PRN PRN Albuterol 2.5 mg/3 ml Neb [Proventil 2.5 mg/3 ml Neb Med 07/22/20 12:23 Active ] 2.5 mg IH Q4H PRN PRN Albuterol Common Canister [Ventolin Common Canister* Med 07/22/20 12:23 Active ] 2 puff IH QID PRN PRN Albuterol/Ipratropium 3ml Neb* [DUONEB 0.5-3 MG/3 ml Med 07/22/20 13:00 Discontinued Neb] 3 ml IH Q6HRT Albuterol/Ipratropium 3ml Neb* [DUONEB 0.5-3 MG/3 ml Med 07/22/20 11:00 Active Neb] 3 ml IH QIDRT Alprazolam 1 mg [Xanax 1 mg] Med 07/22/20 15:00 Active 1 mg PO TID Aripiprazole 10 mg [Abilify 10 MG] Med 07/22/20 13:00 Active 15 mg PO DAILY Azithromycin 500 mg/250 ml [Zithromax 500 MG/ 250 ML Med 07/23/20 10:00 Active NaCl Premix] 500 mg in 250 ml IV Q24H10 Buspirone HCl 5 mg [Buspar 5 mg] Med 07/22/20 12:45 Active 5 mg PO BID Ceftriaxone 1 GM/50 ML PREMIX* [ROCEPHIN 1 Gm-D5w 50 ml Med 07/22/20 10:50 Discontinued Bag] 1 g in 50 ml IV Q24H10 Ceftriaxone 1 GM/50 ML PREMIX* [ROCEPHIN 1 Gm-D5w 50 ml Med 07/23/20 10:00 Active Bag] 1 g in 50 ml IV Q24H10 Desvenlafaxine Succinate [Pristiq ER] Med 07/22/20 13:00 Active 100 mg PO DAILY Famotidine 20 mg Vial [Pepcid 20 MG VIAL] Med 07/22/20 10:50 Active 20 mg IV Q12HT Insulin Lispro [Humalog] Med 07/22/20 10:50 Active See Dose Instructions SQ UD PRN Methylprednis Sod Succ 125 mg* [solu-MEDROL 125 MG] Med 07/22/20 12:00 Active 80 mg IV Q6HT NaCl 0.9% 1000 ml [Sodium Chloride 0.9% 1000 ML] 1,000 Med 07/22/20 10:50 Active ml IV 100 mls/hr Simvastatin 20Mg [Zocor 20Mg] Med 07/22/20 22:00 Active 40 mg PO HS FLUTTER [Flutter Therapy] UD RT 07/22/20 19:32 Active Oxygen Nasal Cannula 2 lpm RT 07/22/20 10:50 Active Pulse Oximetry .spot check RT 07/22/20 12:24 Active Respiratory Therapy Assessment DAILY RT 07/22/20 12:24 Active Respiratory Therapy Consult ROUTINE RT 07/22/20 10:50 Completed Patient Care Notes (Last 24 hours) 07/23/20 07:41 Respiratory Note by Ingrid Jung 0740 room air resting spo2 87%. placed on n/c 2lpm spo2 at rest 95% Initialized on 07/23/20 07:41 - END OF NOTE - Vitals & Intake/Output Vital Signs: Vital Signs Temperature 98.3 F 07/23/20 07:22 Pulse Rate 86 07/23/20 07:22 Respiratory Rate 18 07/23/20 07:22 Blood Pressure 145/76 07/23/20 07:22 O2 Sat by Pulse Oximetry 95 07/23/20 07:22 Intake & Output: Intake & Output 07/20/20 07/21/20 07/22/20 07/23/20 11:59 11:59 11:59 11:59 Intake Total 5124 Balance 5124 Weight 91.4 kg - Lab Result Diagrams: 07/23/20 05:33 07/23/20 05:33 Lab Results-Last 24 Hrs: Lab Results-Last 24 Hours 07/23/20 07/23/20 Range/Units 05:33 05:33 WBC 17.6 H (4.0-10.5) K/mm3 RBC 4.17 (4.1-5.4) M/mm3 Hgb 12.4 (12.0-16.0) gm/dl Hct 38.6 (35-47) % MCV 92.6 (78-100) fl MCH 29.7 (26-32) pg MCHC 32.1 (32-36) g/dl RDW 13.7 (11.5-14.0) % Plt Count 304 (150-450) K/mm3 MPV 8.7 (7.5-11.0) fl Segmented Neutrophils 85 H (36.0-66.0) % Lymphocytes (Manual) 14 L (24-44) % Monocytes (Manual) 1 (0.0-12.0) % Platelet Estimate NORMAL (NORMAL) RBC Morphology NORMAL Sodium 138 (137-145) mmol/L Potassium 4.4 (3.5-5.1) mmol/L Chloride 104 (98-107) mmol/L Carbon Dioxide 28 (22-30) mmol/L Anion Gap 10.0 (5-15) MEQ/L BUN 16 (7-17) mg/dL Creatinine 0.66 (0.52-1.04) mg/dL Estimated GFR > 60.0 ML/MIN Glucose 170 H (74-106) mg/dL Calcium 9.3 (8.4-10.2) mg/dL Total Bilirubin 0.30 (0.2-1.3) mg/dL AST 26 (14-36) U/L ALT 28 (0-35) U/L Alkaline Phosphatase 94 (38-126) U/L Serum Total Protein 7.2 (6.3-8.2) g/dL Albumin 4.0 (3.5-5.0) g/dL - Radiology Exams Ordered Rad Exams-Entire Visit: Radiology Procedures Category Date Time Status CHEST 1 VIEW (PORTABLE) Stat Exams 07/22/20 05:13 Completed RAD/CHEST 1 VIEW (PORTABLE) Indication: Short of breath. Comparison: May 30, 2020. Portable chest again demonstrates normal heart and lungs with incidental tiny calcified granulomas. Bony thorax intact. No new/acute findings. - Procedures and Test Procedures and Tests throughout Hospitalization: Therapy Orders & Screens 07/22/20 06:56 Respiratory Therapy Assessment DAILY Comment: 07/22/20 10:50 Oxygen Nasal Cannula 2 lpm Comment: Respiratory Therapy Consult ROUTINE Comment: Reason For Exam: 07/22/20 12:24 Respiratory Therapy Assessment DAILY Comment: Diagnosis: sob 07/22/20 19:32 FLUTTER [Flutter Therapy] UD Comment: Diagnosis: sob Discharge Exam General Appearance: no apparent distress, alert Neurologic Exam: alert, oriented x 3, cooperative, normal mood/affect, nml cerebellar function, sensation nml, No motor deficits Eye Exam: PERRL, EOMI, eyes nml inspection Ears, Nose, Throat Exam: normal ENT inspection, pharynx normal, moist mucous membranes Neck Exam: normal inspection, non-tender, supple, full range of motion Respiratory Exam: normal breath sounds, lungs clear, No respiratory distress Cardiovascular Exam: regular rate/rhythm, normal heart sounds Gastrointestinal/Abdomen Exam: soft, No tenderness, No mass Pelvic Exam: deferred Rectal Exam: deferred Back Exam: normal inspection, normal range of motion, No CVA tenderness, No vertebral tenderness Extremity Exam: normal inspection, normal range of motion Skin Exam: normal color, warm, dry Final Diagnosis/Problem List - Final Discharge Diagnosis/Problem (1) Respiratory failure with hypoxia and hypercapnia Current Visit: Yes Status: Resolved Code(s): J96.91 - RESPIRATORY FAILURE, UNSPECIFIED WITH HYPOXIA; J96.92 - RESPIRATORY FAILURE, UNSPECIFIED WITH HYPERCAPNIA (2) Shortness of breath Current Visit: Yes Status: Resolved Code(s): R06.02 - SHORTNESS OF BREATH (3) Chest pain, non-cardiac Current Visit: Yes Status: Resolved Code(s): R07.89 - OTHER CHEST PAIN - Discharge Discharge Date: 07/23/20 Disposition: Home, Self-Care Condition: Stable Prescriptions: New Methylprednisolone Packet [Medrol Dosepack] 0 mg PO UD #1 packet Azithromycin [Zithromax] 0 mg PO UD 5 Days #6 tablet Continue Albuterol 2.5 mg/3 ml Neb [Proventil 2.5 mg/3 ml Neb] 1 inh .ROUTE Q4H PRN PRN Reason: sob Pravastatin Sodium 40 mg PO DAILY Desvenlafaxine Succinate [Pristiq] 100 mg PO DAILY Buspirone HCl 5 mg [Buspar 5 mg] 5 mg PO BID Aripiprazole [Abilify] 15 mg PO DAILY Alprazolam 1 mg [Xanax 1 mg] 1 mg PO TID Albuterol Common Canister [Ventolin Common Canister] 2 puff IH QID PRN PRN Reason: sob Instructions: Shortness of Breath (Dyspnea) (DC) Follow up with: GINNY BUSTAMANTE [Primary Care Provider] - 7 Days Forms: Discharge Instructions
[2020-07-23] MEDS ORDERED: Zithromax 500 MG/ 250 ML NaCl Premix 500 MG/250 ML IVPB IV SCH (10:00)
[2020-07-23] MEDS ORDERED: ROCEPHIN 1 Gm-D5w 50 ml Bag** 1 G/50 ML IVPB IV SCH (10:00)
[2020-07-23] MEDS ORDERED: NON-FORMULARY ITEM (Desvenlafaxine Succinate [Pristiq] 100 MG) PO SCH (10:00)
[2020-07-23] MEDS ORDERED: NON-FORMULARY ITEM (Pravastatin Sodium [Pravastatin Sodium] 40 MG) PO SCH (10:00)
[2020-07-23] MEDS ORDERED: ARIPIPRAZOLE 15 MG PO SCH (10:00)
[2020-07-24 08:36] VITALS: O2SAT 94
== END 2020-07-23 10:05 | disposition home or self-care (01) ==
LOC: ED 04:54 → MED SURG 10:17
PROVIDERS: ADMIT General Practice; ATTEND Family Medicine
DX: J96.91 Respiratory failure, unspecified with hypoxia (principal); J96.92 Respiratory failure, unspecified with hypercapnia; R07.89 Other chest pain; Z79.899 Other long term (current) drug therapy
CPT/HCPCS: 36000; 36415; 36600; 71045; 80053; 81001; 82375; 82803; 83605; 83735; 83880; 84484; 85025; 85379; 87040; 87086; 93005; 93268; 94640; 94667; 94668; 94762; 96360; 96365; 96367; 96374; 96375; 99285; 99291; G0378; U0003; 94760; J0456; J0696; J2060; J2930; J7609; A9270-GY

== ENCOUNTER 2024-08-12 15:52 | Emergency (ER) | payer MEDICARE ==
[2024-08-12 16:04] VITALS: TEMP 96.6; O2SAT 96
--- NOTE | 2024-08-12 16:41 | ERPHSYRPT ---
- History of Present Illness Time Seen by Provider: 08/12/24 16:25 Source: patient Exam Limitations: no limitations Patient Subjective Stated Complaint: SOB Triage Nursing Assessment: Patient brought into ED per EMS and transferred to bed with assist of 1. Patient A+O X 3. Patient's skin pink, warm and dry. Patient states she started having a panic attack prior to coming to ED. Patient wears PRN home O2 at 3 liters and had it on when EMS arrived. Patient complains of right upper chest/abdominal pain 4/10 intermittent sharp pain. Physician History: Patient is a 58-year-old female presents to emergency department for evaluation. Patient's presentation was that of a panic attack. However patient states she was in a panic attack after reading a [employer] diagnosis of her symptoms. Patient reports she has been experiencing abdominal bloating right upper quadrant pain and tenderness. Patient reports that she had elevated liver enzymes approximately a year and a half ago. Patient states her symptoms improved but have reoccurred. Patient was concerned regarding her symptoms so she googled her symptomology. Patient is a [employer] research advised that she could have liver cancer. Patient worried herself into a panic attack which was her presentation. Since her arrival patient's panic attack symptomology has since resolved. Patient appears to be more calm. No associated chest pain or shortness of breath. No nausea vomiting or diaphoresis. Symptoms are mild to moderate in intensity. Patient voices no other complaints or concerns at this time. Portions of this note were created with voice recognition technology. There may be grammatical, spelling, punctuation or sound alike errors Timing/Duration: today Severity: moderate Modifying Factors: Improves With: nothing Associated Symptoms: denies symptoms Allergies/Adverse Reactions: No Known Drug Allergies Allergy (Verified 08/12/24 15:57) Home Medications: ALPRAZolam 1 MG [Xanax 1 mg] 1 mg PO TID 07/22/20 [History] Albuterol 2.5 mg/3 ml Neb [Proventil 2.5 mg/3 ml Neb] 1 inh .ROUTE Q4H PRN 07/22/20 [History] Albuterol Common Canister [Ventolin Common Canister] 2 puff IH QID PRN 07/22/20 [History] Atorvastatin Calcium 80 mg PO HS 07/03/24 [History] Cetirizine HCl [All Day Allergy Relief] 10 mg PO DAILY 07/03/24 [History] Fluticasone/Umeclidin/Vilanter [Trelegy Ellipta 200-62.5-25] 1 each IH DAILY 07/03/24 [History] Fluvoxamine Maleate [Fluvoxamine Maleate ER] 100 mg PO BID 07/03/24 [History] Metoprolol Succinate 25 mg Xl* [Toprol-Xl 25MG Tablets] 25 mg PO DAILY 07/03/24 [History] Trazodone HCl 100 mg PO HS 07/03/24 [History] Hx Tetanus, Diphtheria Vaccination/Date Given: No Hx Influenza Vaccination/Date Given: No Hx Pneumococcal Vaccination/Date Given: No Immunizations Up to Date: Yes Travel Risk - International Travel Have you traveled outside of the country in past 3 weeks: No - Emerging Infectious Disease Are you exhibiting symptoms associated with any current EIDs: No - Review of Systems Constitutional: No Symptoms, No Fever, No Chills Eyes: No Symptoms Ears, Nose, & Throat: No Symptoms Respiratory: No Symptoms, No Cough, No Dyspnea Cardiac: No Symptoms, No Chest Pain, No Edema, No Syncope Abdominal/Gastrointestinal: No Symptoms, No Abdominal Pain, No Nausea, No Vomiting, No Diarrhea Genitourinary Symptoms: No Symptoms, No Dysuria Musculoskeletal: No Symptoms, No Back Pain, No Neck Pain Skin: No Symptoms, No Rash Neurological: No Symptoms, No Dizziness, No Focal Weakness, No Sensory Changes Psychological: No Symptoms Endocrine: No Symptoms Hematologic/Lymphatic: No Symptoms Immunological/Allergic: No Symptoms All Other Systems: Reviewed and Negative - Past Medical History Pertinent Past Medical History: Yes Neurological History: No Pertinent History ENT History: No Pertinent History Cardiac History: No Pertinent History Respiratory History: Bronchitis Endocrine Medical History: No Pertinent History Musculoskeletal History: Degenerative Disk Disease GI Medical History: GERD, Ulcer, Other History: No Pertinent History Psycho-Social History: Anxiety, Depression Female Reproductive Disorders: Cervical Cancer Other Medical History: stage 1 cervical ca - Past Surgical History Past Surgical History: Yes Neuro Surgical History: Other Cardiac: No Pertinent History Respiratory: No Pertinent History Gastrointestinal: No Pertinent History Genitourinary: No Pertinent History Musculoskeletal: No Pertinent History, Orthopedic Surgery Female Surgical History: Hysterectomy, Tubal Ligation Other Surgical History: nerve decompression, back surgery, conization - Social History Smoking Status: Never smoker Exposure to second hand smoke: Yes Drug Use: none Patient Lives Alone: No - Social Determinants of Health Will the patient participate in the screening: Yes Do you worry about a steady place to live?: No Do you have any problems with any of the following?: No known problems In the past 12 months,have you had to go without utilities?: No Transportation Issues: No Has anyone in your support network made you feel unsafe?: No Have you or anyone in your house had to go without enough: No - Nursing Vital Signs Nursing Vital Signs: Initial Vital Signs Temperature 96.6 F 08/12/24 15:57 Pulse Rate 65 08/12/24 15:57 Respiratory Rate 20 08/12/24 15:57 Blood Pressure 178/80 08/12/24 15:57 O2 Sat by Pulse Oximetry 96 08/12/24 15:57 Pain Scale Pain Intensity 0 - Physical Exam General Appearance: no apparent distress, alert Eye Exam: PERRL/EOMI, eyes nml inspection Ears, Nose, Throat Exam: normal ENT inspection, TMs normal, pharynx normal, moist mucous membranes Neck Exam: normal inspection, non-tender, supple, full range of motion Respiratory Exam: normal breath sounds, lungs clear, No respiratory distress Cardiovascular Exam: regular rate/rhythm, normal heart sounds, normal peripheral pulses Gastrointestinal/Abdomen Exam: soft, normal bowel sounds, tenderness, distention, other (Slight abdominal distention with mild generalized t enderness), No mass Back Exam: normal inspection, normal range of motion, No CVA tenderness, No vertebral tenderness Extremity Exam: normal inspection, normal range of motion, pelvis stable Neurologic Exam: alert, oriented x 3, cooperative, normal mood/affect, sensation nml, No motor deficits Skin Exam: normal color, warm, dry, No rash Lymphatic Exam: No adenopathy SpO2 Interpretation: normal SpO2: 96 O2 Delivery: Room Air - Course Nursing assessment & vital signs reviewed: Yes EKG Interpreted by Me: RATE (56), Sinus Rhythm, Left [place] Deviation, NORMAL INTERVALS, NORMAL QRS - CT Exams Abdomen/Pelvis CT Interpretation: Tele-radiologist Report (No comps. Scattered diverticulosis without diverticulitis. 1.4 cm left renal cyst. Mild L5-S1 DDD) Ordered Tests: Active Orders 24 hr Category Date Time Status IV Insertion STAT Care 08/12/24 16:39 Active ABDOMEN AND PELVIS W/0 CONTRAS [CT] Stat Exams 08/12/24 16:39 Taken CBC W DIFF Stat Lab 08/12/24 17:15 Completed CMP Stat Lab 08/12/24 17:15 Completed LIPASE Stat Lab 08/12/24 17:15 Completed TROPONIN Q4H Lab 08/12/24 17:15 Completed TROPONIN Q4H Lab 08/12/24 19:20 Completed TROPONIN Q4H Lab 08/13/24 00:45 Ordered UA W/RFX UR CULTURE Stat Lab 08/12/24 17:10 Completed Medication Summary Discontinued Medications Generic Name Dose Route Start Last Admin Trade Name Freq PRN Reason Stop Dose Admin Ondansetron HCl 4 mg 08/12/24 18:25 08/12/24 18:26 Ondansetron Hcl 4 Mg/2 Ml Vial IV 08/12/24 18:26 4 mg STAT ONE Administration Ondansetron HCl Confirm 08/12/24 18:26 Ondansetron Hcl 4 Mg/2 Ml Vial Administered 08/12/24 18:27 Dose 4 mg .ROUTE .STK-MED ONE Lab/Rad Data: Laboratory Result Diagrams 08/12/24 17:15 08/12/24 17:15 Laboratory Results 08/12/24 08/12/24 08/12/24 Range/Units 19:20 17:15 17:15 WBC (3.98-10.04) x10^3/uL RBC (3.93-5.22) x10^6/uL Hgb (11.2-15.7) g/dL Hct (34.1-44.9) % MCV (79.4-94.8) fL MCH (25.6-32.2) pg MCHC (32.2-35.5) g/dL RDW (11.7-14.4) % Plt Count (182-369) x10^3/uL MPV (9.4-12.3) fL Gran % (34.0-71.1) % Immature Gran % (Auto) (0.001-0.429) % Nucleat RBC Rel Count (0.00-0.2) % Eos # (Auto) (0.04-0.36) x10^3/uL Immature Gran # (Auto) (0.001-0.031) x10^3u/L Absolute Lymphs (auto) (1.18-3.74) x10^3/uL Absolute Monos (auto) (0.24-0.86) x10^3/uL Absolute Nucleated RBC (0.00-0.012) x10^3u/L Lymphocytes % (19.3-51.7) % Monocytes % (4.7-12.5) % Eosinophils % (0.7-5.8) % Basophils % (0.1-1.2) % Absolute Granulocytes (1.56-6.13) x10^3/uL Basophils # (0.01-0.08) x10^3/uL Sodium 138 (135-145) mmol/L Potassium 4.2 (3.5-5.1) mmol/L Chloride 103 (98-107) mmol/L Carbon Dioxide 31 H (22-30) mmol/L Anion Gap 8.7 (5-15) MEQ/L BUN 10 (7-17) mg/dL Creatinine 0.74 (0.52-1.04) mg/dL Estimated GFR 93.7 ML/MIN Glucose 104 (74-106) mg/dL Calcium 9.4 (8.4-10.2) mg/dL Total Bilirubin 0.40 (0.2-1.3) mg/dL AST 38 H (14-36) U/L ALT 32 (0-35) U/L Alkaline Phosphatase 85 (38-126) U/L Troponin I < 0.012 < 0.012 (0.000-0.033) ng/mL Serum Total Protein 6.8 (6.3-8.2) g/dL Albumin 4.4 (3.5-5.0) g/dL Lipase 59 (23-300) U/L Urine Color (Yellow) Urine Appearance (Clear) Urine pH (4.6-8.0) Ur Specific Draper (1.005-1.030) Urine Protein (Negative) Urine Glucose (UA) (Negative) mg/dL Urine Ketones (Negative) Urine Blood (Negative) Urine Nitrite (Negative) Urine Bilirubin (Negative) Urine Urobilinogen (0.2) mg/dL Ur Leukocyte Esterase (Negative) U Hyaline Cast (Auto) (0-2) /LPF Urine Microscopic RBC (0-5) /HPF Urine Microscopic WBC (0-5) /HPF Ur Epithelial Cells (None Seen) /HPF Urine Bacteria (None Seen) /HPF Urine Culture Reflexed (NO) 08/12/24 08/12/24 Range/Units 17:15 17:10 WBC 6.5 (3.98-10.04) x10^3/uL RBC 4.26 (3.93-5.22) x10^6/uL Hgb 12.8 (11.2-15.7) g/dL Hct 37.9 (34.1-44.9) % MCV 89.0 (79.4-94.8) fL MCH 30.0 (25.6-32.2) pg MCHC 33.8 (32.2-35.5) g/dL RDW 12.1 (11.7-14.4) % Plt Count 279 (182-369) x10^3/uL MPV 8.8 L (9.4-12.3) fL Gran % 60.9 (34.0-71.1) % Immature Gran % (Auto) 0.6 H (0.001-0.429) % Nucleat RBC Rel Count 0.0 (0.00-0.2) % Eos # (Auto) 0.30 (0.04-0.36) x10^3/uL Immature Gran # (Auto) 0.04 H (0.001-0.031) x10^3u/L Absolute Lymphs (auto) 1.66 (1.18-3.74) x10^3/uL Absolute Monos (auto) 0.43 (0.24-0.86) x10^3/uL Absolute Nucleated RBC 0.00 (0.00-0.012) x10^3u/L Lymphocytes % 25.7 (19.3-51.7) % Monocytes % 6.7 (4.7-12.5) % Eosinophils % 4.6 (0.7-5.8) % Basophils % 1.5 H (0.1-1.2) % Absolute Granulocytes 3.93 (1.56-6.13) x10^3/uL Basophils # 0.10 H (0.01-0.08) x10^3/uL Sodium (135-145) mmol/L Potassium (3.5-5.1) mmol/L Chloride (98-107) mmol/L Carbon Dioxide (22-30) mmol/L Anion Gap (5-15) MEQ/L BUN (7-17) mg/dL Creatinine (0.52-1.04) mg/dL Estimated GFR ML/MIN Glucose (74-106) mg/dL Calcium (8.4-10.2) mg/dL Total Bilirubin (0.2-1.3) mg/dL AST (14-36) U/L ALT (0-35) U/L Alkaline Phosphatase (38-126) U/L Troponin I (0.000-0.033) ng/mL Serum Total Protein (6.3-8.2) g/dL Albumin (3.5-5.0) g/dL Lipase (23-300) U/L Urine Color Yellow (Yellow) Urine Appearance Clear (Clear) Urine pH 8.0 (4.6-8.0) Ur Specific Draper <=1.005 (1.005-1.030) Urine Protein Negative (Negative) Urine Glucose (UA) Negative (Negative) mg/dL Urine Ketones Negative (Negative) Urine Blood Negative (Negative) Urine Nitrite Negative (Negative) Urine Bilirubin Negative (Negative) Urine Urobilinogen 0.2 (0.2) mg/dL Ur Leukocyte Esterase Negative (Negative) U Hyaline Cast (Auto) NONE SEEN (0-2) /LPF Urine Microscopic RBC 0-2 (0-5) /HPF Urine Microscopic WBC 0-2 (0-5) /HPF Ur Epithelial Cells None Seen (None Seen) /HPF Urine Bacteria None Seen (None Seen) /HPF Urine Culture Reflexed NO (NO) - Progress Progress: improved Progress Note: 50-year-old female presents to our ED via EMS for evaluation. Patient complained of anxiety/panic attack. Patient was experiencing some abdominal pain and discomfort. Patient read on the Internet that her symptoms could be due to liver cancer. Patient's anxiety symptomology resolved. CT abdomen pelvis negative for acute intra-abdominal pathology. Liver enzymes are essentially within normal range. Troponin negative x 2. EKG normal sinus rhythm. Laboratory workup otherwise negative. Patient resting comfortably. She is currently asymptomatic. No indication for further workup will discharge home. Patient agrees to follow-up with the primary care doctor within 48 hours for reevaluation. Portions of this note were created with voice recognition technology. There may be grammatical, spelling, punctuation or sound alike errors Complexity of problem addressed is moderate acute complicated. No critical care time. Complexity of data reviewed and analyzed is moderate test ordered chest reviewed results analyzed and correlated clinically with history and physical exam. Risk of complication and or risk of morbidity/mortality of patient management is low. Vital stable. Time spent to discharge patient approximately 10 minutes. Plan of care established for shared decision making. No social determinants of health present to impede follow-up. Portions of this note were created with voice recognition technology. There may be grammatical, spelling, punctuation or sound alike errors 08/12/24 20:07 08/12/24 20:08 0 Counseled pt/family regarding: lab results, diagnosis, need for follow-up, rad results - Departure Departure Disposition: Home Clinical Impression: Panic attack, Renal cyst, left, Abdominal pain Condition: Stable Critical Care Time: No Referrals: JONO CRUZ DO [Primary Care Provider] - Follow up/PCP as directed Additional Instructions: Discharge/Care Plan MARLO MORALES was seen on 08/12/24 in the Emergency Room. The patient was counseled regarding Diagnosis,Lab results, Imaging studies, need for follow up and when to return to the Emergency Room. Prescriptions given: Discharge Note I have spoken with the patient and/or caregivers. I have explained the patient's condition, diagnosis and treatment plan based on the information available to me at this time. I have answered the patient's and/or caregiver's questions and addressed any concerns. The patient and/or caregivers have as good understanding of the patient's diagnosis, condition and treatment plan as can be expected at this point. The vital signs have been stable. The patient's condition is stable and appropriate for discharge from the emergency department. The patient will pursue further outpatient evaluation with the primary care physician or other designated or consulting physician as outlined in the discharge instructions. The patient and/or caregivers are agreeable to this plan of care and follow-up instructions have been explained in detail. The patient and/or caregivers have received these instruction. The patient/and or caregivers are aware that any significant change in condition or worsening of symptoms should prompt an immediate return to this or the closest emergency department or call 911.
[2024-08-12 17:20] LABS: Absolute Neutrophil Ct (ANC) 3.93 x10^3/uL (1.56-6.13); BASOPHIL % 1.5 % (0.1-1.2); Eosinophil % 4.6 % (0.7-5.8); Hematocrit 37.9 % (34.1-44.9); Hemoglobin 12.8 g/dL (11.2-15.7); IMMATURE GRAN # 0.04 x10^3u/L (0.001-0.031); IMMATURE GRAN % 0.6 % (0.001-0.429); Lymphocyte (Absolute #) 1.66 x10^3/uL (1.18-3.74); Lymphocytes % 25.7 % (19.3-51.7); Mean Corpuscular Hgb Concent. 33.8 g/dL (32.2-35.5); Mean Platelet Volume 8.8 fL (9.4-12.3); Monocyte (Absolute #) 0.43 x10^3/uL (0.24-0.86); Monocytes % 6.7 % (4.7-12.5); Neutrophil % 60.9 % (34.0-71.1); Platelet Count 279 x10^3/uL (182-369); Red Blood Count 4.26 x10^6/uL (3.93-5.22); Red Cell Distribution Width 12.1 % (11.7-14.4); White Blood Count 6.5 x10^3/uL (3.98-10.04)
[2024-08-12 17:32] LABS: ALBUMIN 4.4 g/dL (3.5-5.0); ANION GAP 8.7 MEQ/L (5-15); BILIRUBIN,TOTAL 0.4 mg/dL (0.2-1.3); Calcium 9.4 mg/dL (8.4-10.2); Creatinine 1 0.74 mg/dL (0.52-1.04); EST GLOMERULAR FILTRATION RATE 93.7 ML/MIN; Potassium 4.2 mmol/L (3.5-5.1); Total Protein 6.8 g/dL (6.3-8.2)
[2024-08-12 17:41] LABS: Appearance Clear (Clear); Bacteria None Seen /HPF (None Seen); Bilirubin Negative (Negative); Blood Negative (Negative); Epithelial Cells None Seen /HPF (None Seen); Glucose, Urine Negative (Negative); Hyaline Casts NONE SEEN /LPF (0-2); Ketones Negative (Negative); Leukocyte Esterase Negative (Negative); Nitrite Negative (Negative); Protein,Urine Dip Negative (Negative); RBC 0-2 /HPF (0-5); Specific Gravity <=1.005 (1.005-1.030); Urobilinogen 0.2 mg/dL (0.2); WBC 0-2 /HPF (0-5)
[2024-08-12] MEDS: Zofran 4 MG/2 ML VIAL IV ONE (18:26)
[2024-08-12] MEDS ORDERED: Zofran 4 MG/2 ML VIAL ONE (18:26)
[2024-08-12 19:48] VITALS: PULSE 72; RESP 18
[2024-08-12 20:20] VITALS: BP 134/83
--- NOTE | 2024-08-13 08:36 | XRAY ---
Indication: Abdomen pain/distention. Multiple contiguous axial images obtained through the abdomen and pelvis without contrast. Comparison: None Lung bases demonstrates minimal bilateral subsegmental atelectasis/scarring. No infiltrate or effusion. Heart not enlarged. Scattered radiopacities throughout distal small bowel and colon either ingested medication, bismuth, or barium. Stomach and bowel loops appear nonobstructed. 2 cm descending duodenal diverticulum. Normal appendix. Mild diffuse scattered colonic diverticulosis without diverticulitis. Left upper kidney demonstrates 1.4 cm exophytic cyst. Previous hysterectomy. No free fluid/air. Remaining liver, gallbladder, pancreas, spleen, adrenal glands, kidneys, ureters, and bladder are unremarkable for noncontrast exam. Minimal aortoiliac calcifications without AAA. Osseous structures intact with mild L5-S1 degenerative disc disease. No ventral or inguinal hernias. Impression: Chronic findings including duodenal diverticulum, colonic diverticulosis, left renal cyst, arteriosclerotic disease, and L5-S1 degenerative disc disease. No acute findings on this noncontrast exam.
== END 2024-08-12 20:19 | disposition home or self-care (01) ==
LOC: ED 15:52
DX: F41.0 Panic disorder [episodic paroxysmal anxiety] (principal); N28.1 Cyst of kidney, acquired; R10.11 Right upper quadrant pain; Z79.899 Other long term (current) drug therapy
CPT/HCPCS: 36415; 74176; 80053; 81001; 83690; 84484; 85025; 96374; 99284; J2405

== ENCOUNTER 2024-10-23 10:29 | Emergency (ER) | payer MEDICARE ==
--- NOTE | 2024-10-23 10:33 | ERPHSYRPT ---
- History of Present Illness Time Seen by Provider: 10/23/24 10:32 Historian: patient, family Exam Limitations: no limitations Physician History: This is a 59-year-old white female patient who was brought to the emergency department by private vehicle accompanied by her son and is a patient of Dr. Cruz. Patient left AGAINST MEDICAL ADVICE from [facility] just prior to arrival to our emergency department. The patient was being evaluated and managed for abdominal pain. However, there are significant emotional and family issues with the patient's . He is leaving her. She left AMA because she wants to be with her . She, according to family members, stated that if she cannot be with him she does not want to leave. She also threatened to jump out of the car while it was moving at high speeds. According to reports from the family the patient was found to have cholelithiasis on a gallbladder ultrasound. She had consultation with general surgery. They stated that her symptoms of lower abdominal pain and frequent diarrhea are not associated with the cholelithiasis found on gallbladder ultrasound. Patient denies chest pain. Patient denies shortness of breath. Patient is very emotional and tearful at this time. She would not answer the question of whether or not she is suicidal or homicidal. She attempted to leave the emergency room here. Security brought her back. She states she is willing to stay and be evaluated from the abdominal pain standpoint as well as mental health standpoint. Patient has a history of hyperlipidemia, COPD, anxiety, panic disorders, depression, hypertension, degenerative's disease and gastroesophageal reflux disease Timing/Duration: today Activities at Onset: none Quality: aching Abdominal Pain Onset Location: RLQ, LLQ Pain Radiation: no radiation Severity of Pain-Max: mild Severity of Pain-Current: mild Modifying Factors: Improves With: nothing Associated Symptoms: diarrhea, nausea, No chest pain, No fever/chills, No vomiting Previous symptoms: no prior history, recent hospitalization (Patient left AGAINST MEDICAL ADVICE this morning from [facility]) Allergies/Adverse Reactions: No Known Drug Allergies Allergy (Verified 10/23/24 10:37) Home Medications: ALPRAZolam 1 MG [Xanax 1 mg] 1 mg PO TID 07/22/20 [History] Albuterol 2.5 mg/3 ml Neb [Proventil 2.5 mg/3 ml Neb] 1 inh .ROUTE Q4H PRN 07/22/20 [History] Albuterol Common Canister [Ventolin Common Canister] 2 puff IH QID PRN 07/22/20 [History] Atorvastatin Calcium 80 mg PO HS 07/03/24 [History] Cetirizine HCl [All Day Allergy Relief] 10 mg PO DAILY 07/03/24 [History] Fluticasone/Umeclidin/Vilanter [Trelegy Ellipta 200-62.5-25] 1 each IH DAILY 07/03/24 [History] Fluvoxamine Maleate [Fluvoxamine Maleate ER] 100 mg PO BID 07/03/24 [History] Metoprolol Succinate 25 mg Xl* [Toprol-Xl 25MG Tablets] 25 mg PO DAILY 07/03/24 [History] Trazodone HCl 100 mg PO HS 07/03/24 [History] Hx Tetanus, Diphtheria Vaccination/Date Given: No Hx Influenza Vaccination/Date Given: No Hx Pneumococcal Vaccination/Date Given: No Travel Risk - International Travel Have you traveled outside of the country in past 3 weeks: No - Emerging Infectious Disease Are you exhibiting symptoms associated with any current EIDs: No Symptoms: Diarrhea - Review of Systems Constitutional: No Symptoms Eyes: No Symptoms Ears, Nose, & Throat: No Symptoms Respiratory: No Symptoms Cardiac: No Symptoms Abdominal/Gastrointestinal: Abdominal Pain, Nausea, Diarrhea, Appetite Changes Genitourinary Symptoms: No Symptoms Musculoskeletal: No Symptoms Skin: No Symptoms Neurological: No Symptoms Psychological: Anxiety, Depression, Suicidal Ideations (And comments) Endocrine: No Symptoms Hematologic/Lymphatic: No Symptoms Immunological/Allergic: No Symptoms All Other Systems: Reviewed and Negative - Past Medical History Pertinent Past Medical History: Yes Neurological History: No Pertinent History ENT History: No Pertinent History Cardiac History: No Pertinent History Respiratory History: Bronchitis Endocrine Medical History: No Pertinent History Musculoskeletal History: Degenerative Disk Disease GI Medical History: GERD, Ulcer, Other History: No Pertinent History Psycho-Social History: Anxiety, Depression Female Reproductive Disorders: Cervical Cancer Other Medical History: stage 1 cervical ca - Past Surgical History Past Surgical History: Yes Neuro Surgical History: Other Cardiac: No Pertinent History Respiratory: No Pertinent History Gastrointestinal: No Pertinent History Genitourinary: No Pertinent History Musculoskeletal: No Pertinent History, Orthopedic Surgery Female Surgical History: Hysterectomy, Tubal Ligation Other Surgical History: nerve decompression, back surgery, conization - Social History Smoking Status: Never smoker Exposure to second hand smoke: Yes Drug Use: none Patient Lives Alone: No - Social Determinants of Health Will the patient participate in the screening: Yes Do you worry about a steady place to live?: No In the past 12 months,have you had to go without utilities?: No Transportation Issues: No Has anyone in your support network made you feel unsafe?: No Have you or anyone in your house had to go w/o enough food: No - Nursing Vital Signs Nursing Vital Signs: Initial Vital Signs Temperature 97.3 F 10/23/24 10:38 Pulse Rate 80 10/23/24 10:38 Respiratory Rate 16 10/23/24 10:38 Blood Pressure 120/81 10/23/24 10:38 O2 Sat by Pulse Oximetry 98 10/23/24 10:38 Pain Scale Pain Intensity 0 - Physical Exam General Appearance: no apparent distress, alert, anxiety Eye Exam: PERRL/EOMI, eyes nml inspection Ears, Nose, Throat Exam: normal ENT inspection, moist mucous membranes Neck Exam: normal inspection, non-tender, supple, full range of motion Respiratory Exam: normal breath sounds, lungs clear, airway intact, No chest tenderness, No respiratory distress Cardiovascular Exam: regular rate/rhythm, normal heart sounds, normal peripheral pulses Gastrointestinal/Abdomen Exam: soft, normal bowel sounds, tenderness (Bilateral lower quadrants), No rebound Pelvic Exam: not done Rectal Exam: not done Back Exam: normal inspection, normal range of motion, No CVA tenderness, No vertebral tenderness Extremity Exam: normal inspection, normal range of motion, pelvis stable Neurologic Exam: alert, oriented x 3, cooperative, 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 QTc is 406) Ordered Tests: Active Orders 24 hr Category Date Time Status EKG-ER Only STAT Care 10/23/24 10:59 Active ACETAMINOPHEN Stat Lab 10/23/24 11:15 Completed AMYLASE Stat Lab 10/23/24 11:15 Completed CBC W DIFF Stat Lab 10/23/24 11:15 Completed CMP Stat Lab 10/23/24 11:15 Completed ETHYL ALCOHOL Stat Lab 10/23/24 11:15 Completed LIPASE Stat Lab 10/23/24 11:15 Completed SALICYLATE Stat Lab 10/23/24 11:15 Completed UA W/RFX UR CULTURE Stat Lab 10/23/24 13:43 Completed Urine Triage Profile Stat Lab 10/23/24 13:43 Completed Medication Summary Discontinued Medications Generic Name Dose Route Start Last Admin Trade Name Seamus PRN Reason Stop Dose Admin Lorazepam 1 mg 10/23/24 15:14 10/23/24 15:17 Lorazepam 2 Mg/1 Ml 2 Mg Vial IV 10/23/24 15:15 1 mg STAT ONE Administration Lorazepam Confirm 10/23/24 15:15 Lorazepam 2 Mg/1 Ml 2 Mg Vial Administered 10/23/24 15:16 Dose 2 mg .ROUTE .STSalesPredict-MED ONE Lab/Rad Data: Laboratory Result Diagrams 10/23/24 11:15 10/23/24 11:15 Laboratory Results 10/23/24 10/23/24 10/23/24 Range/Units 13:43 13:43 11:15 WBC (3.98-10.04) x10^3/uL RBC (3.93-5.22) x10^6/uL Hgb (11.2-15.7) g/dL Hct (34.1-44.9) % MCV (79.4-94.8) fL MCH (25.6-32.2) pg MCHC (32.2-35.5) g/dL RDW (11.7-14.4) % Plt Count (182-369) x10^3/uL MPV (9.4-12.3) fL Gran % (34.0-71.1) % Immature Gran % (Auto) (0.001-0.429) % Nucleat RBC Rel Count (0.00-0.2) % Eos # (Auto) (0.04-0.36) x10^3/uL Immature Gran # (Auto) (0.001-0.031) x10^3u/L Absolute Lymphs (auto) (1.18-3.74) x10^3/uL Absolute Monos (auto) (0.24-0.86) x10^3/uL Absolute Nucleated RBC (0.00-0.012) x10^3u/L Lymphocytes % (19.3-51.7) % Monocytes % (4.7-12.5) % Eosinophils % (0.7-5.8) % Basophils % (0.1-1.2) % Absolute Granulocytes (1.56-6.13) x10^3/uL Basophils # (0.01-0.08) x10^3/uL Sodium 139 (135-145) mmol/L Potassium 4.0 (3.5-5.1) mmol/L Chloride 103 (98-107) mmol/L Carbon Dioxide 27 (22-30) mmol/L Anion Gap 13.1 (5-15) MEQ/L BUN 8 (7-17) mg/dL Creatinine 0.90 (0.52-1.04) mg/dL Estimated GFR 73.6 ML/MIN Glucose 119 H (74-106) mg/dL Calcium 9.2 (8.4-10.2) mg/dL Total Bilirubin 0.60 (0.2-1.3) mg/dL AST 27 (14-36) U/L ALT 26 (0-35) U/L Alkaline Phosphatase 95 (38-126) U/L Serum Total Protein 6.5 (6.3-8.2) g/dL Albumin 4.0 (3.5-5.0) g/dL Amylase 40 (30-110) U/L Lipase 67 (23-300) U/L Urine Color Yellow (Yellow) Urine Appearance Clear (Clear) Urine pH 5.0 (4.6-8.0) Ur Specific [place] >=1.030 A (1.005-1.030) Urine Protein Negative (Negative) Urine Glucose (UA) Negative (Negative) mg/dL Urine Ketones Negative (Negative) Urine Blood Negative (Negative) Urine Nitrite Negative (Negative) Urine Bilirubin Negative (Negative) Urine Urobilinogen 0.2 (0.2) mg/dL Ur Leukocyte Esterase Negative (Negative) U Hyaline Cast (Auto) NONE SEEN (0-2) /LPF Urine Microscopic RBC 0-2 (0-5) /HPF Urine Microscopic WBC 3-5 (0-5) /HPF Ur Epithelial Cells Few (None Seen) /HPF Urine Bacteria Rare A (None Seen) /HPF Urine Culture Reflexed NO (NO) Salicylates < 1.0 L (2-20) mg/dL Urine Opiates Level NEGATIVE (NEGATIVE) Ur Methadone NEGATIVE (NEGATIVE) Acetaminophen < 10 L (10-30) ug/ml Urine Barbiturates NEGATIVE (NEGATIVE) Ur Phencyclidine (PCP) NEGATIVE (NEGATIVE) Urine Amphetamine POSITIVE A (NEGATIVE) U Benzodiazepine Level POSITIVE A (NEGATIVE) Urine Cocaine NEGATIVE (NEGATIVE) Urine Marijuana (THC) POSITIVE A (NEGATIVE) Ethyl Alcohol < 10 (0-10) mg/dL 10/23/24 Range/Units 11:15 WBC 5.4 (3.98-10.04) x10^3/uL RBC 4.37 (3.93-5.22) x10^6/uL Hgb 12.9 (11.2-15.7) g/dL Hct 39.3 (34.1-44.9) % MCV 89.9 (79.4-94.8) fL MCH 29.5 (25.6-32.2) pg MCHC 32.8 (32.2-35.5) g/dL RDW 12.3 (11.7-14.4) % Plt Count 295 (182-369) x10^3/uL MPV 8.7 L (9.4-12.3) fL Gran % 57.8 (34.0-71.1) % Immature Gran % (Auto) 0.4 (0.001-0.429) % Nucleat RBC Rel Count 0.0 (0.00-0.2) % Eos # (Auto) 0.30 (0.04-0.36) x10^3/uL Immature Gran # (Auto) 0.02 (0.001-0.031) x10^3u/L Absolute Lymphs (auto) 1.36 (1.18-3.74) x10^3/uL Absolute Monos (auto) 0.49 (0.24-0.86) x10^3/uL Absolute Nucleated RBC 0.00 (0.00-0.012) x10^3u/L Lymphocytes % 25.4 (19.3-51.7) % Monocytes % 9.1 (4.7-12.5) % Eosinophils % 5.6 (0.7-5.8) % Basophils % 1.7 H (0.1-1.2) % Absolute Granulocytes 3.10 (1.56-6.13) x10^3/uL Basophils # 0.09 H (0.01-0.08) x10^3/uL Sodium (135-145) mmol/L Potassium (3.5-5.1) mmol/L Chloride (98-107) mmol/L Carbon Dioxide (22-30) mmol/L Anion Gap (5-15) MEQ/L BUN (7-17) mg/dL Creatinine (0.52-1.04) mg/dL Estimated GFR ML/MIN Glucose (74-106) mg/dL Calcium (8.4-10.2) mg/dL Total Bilirubin (0.2-1.3) mg/dL AST (14-36) U/L ALT (0-35) U/L Alkaline Phosphatase (38-126) U/L Serum Total Protein (6.3-8.2) g/dL Albumin (3.5-5.0) g/dL Amylase (30-110) U/L Lipase (23-300) U/L Urine Color (Yellow) Urine Appearance (Clear) Urine pH (4.6-8.0) Ur Specific [place] (1.005-1.030) Urine Protein (Negative) Urine Glucose (UA) (Negative) mg/dL Urine Ketones (Negative) Urine Blood (Negative) Urine Nitrite (Negative) Urine Bilirubin (Negative) Urine Urobilinogen (0.2) mg/dL Ur Leukocyte Esterase (Negative) U Hyaline Cast (Auto) (0-2) /LPF Urine Microscopic RBC (0-5) /HPF Urine Microscopic WBC (0-5) /HPF Ur Epithelial Cells (None Seen) /HPF Urine Bacteria (None Seen) /HPF Urine Culture Reflexed (NO) Salicylates (2-20) mg/dL Urine Opiates Level (NEGATIVE) Ur Methadone (NEGATIVE) Acetaminophen (10-30) ug/ml Urine Barbiturates (NEGATIVE) Ur Phencyclidine (PCP) (NEGATIVE) Urine Amphetamine (NEGATIVE) U Benzodiazepine Level (NEGATIVE) Urine Cocaine (NEGATIVE) Urine Marijuana (THC) (NEGATIVE) Ethyl Alcohol (0-10) mg/dL - Progress Progress: unchanged, re-examined Progress Note: 10/23/24 11:14 My medical decision making and the assignment of at least moderate complexity is based on review of the patient's past medical history, review of the patient's medication list, review of the patient's drug allergy list, history present illness and physical findings on examination. The workup in this patient includes placement of intravenous line, CBC, CMP, amylase, lipase, urinalysis, urine drug triage, ethyl alcohol level, acetaminophen level, salicylate level, twelve-lead EKG. We will also review the emergency room stay and inpatient stay from [facility] once we receive the paperwork. If the patient has not had a CT scan of the abdomen pelvis we will order 1 to be performed here. We will also have this patient be evaluated by mental health to determine her disposition. Differential diagnosis includes but is not limited to pancreatitis, colitis, diverticulitis, pelvic pathology, intra-abdominal pathology, urinary tract infection, suicidal ideation, anxiety, depression 10/23/24 17:17 I interpreted the patient's laboratory data results. Based on the laboratory data results, the patient has no acute, emergent medical issue. I did review the emergency department and inpatient medical records from [facility]. The CT scan does show that the patient has mild sigmoid colon diverticulitis. 10/23/24 17:20 The patient is yelling and screaming out in stating that she wants to go home. Her father was banging at the emergency room door in the waiting area demanding to come in. However, he did not know what the medical/psychiatric situation we were trying to help her with. Now that he is aware of why she is here and what we are trying to do to help her, he has calmed down and has remained calmly in the emergency department waiting area. I asked her if she wanted something to drink, wanted something to eat or another dose of her Xanax. She declines all of them at this time 10/23/24 20:07 Patient has been accepted at [facility]. The patient has been emergently detained. The diagnosis is major depressive disorder recurrent, severe without psychotic features Counseled pt/family regarding: lab results, diagnosis Medical Desision Making - Independent Historian Additional History obtained from: Family - Discussion of managment Care discussed with:: specialist - Diagnostic Testing Diagnostic test were ordered, analyzed, and reviewed by me: Yes - Risk of complications The pt has a high risk of morbidity or mortality based on: Decision regarding hospitilization or escalation of hosp level of care - Departure Departure Disposition: Transfer Clinical Impression: Major depressive disorder, recurrent severe without psychotic features Condition: Stable Critical Care Time: No Referrals: JONO CRUZ DO [Primary Care Provider] - Follow up/PCP as directed
[2024-10-23 11:16] LABS: BASOPHIL % 1.7 % (0.1-1.2); Basophil (Absolute #) 0.09 x10^3/uL (0.01-0.08); Eosinophil % 5.6 % (0.7-5.8); Hematocrit 39.3 % (34.1-44.9); Hemoglobin 12.9 g/dL (11.2-15.7); IMMATURE GRAN # 0.02 x10^3u/L (0.001-0.031); IMMATURE GRAN % 0.4 % (0.001-0.429); Lymphocyte (Absolute #) 1.36 x10^3/uL (1.18-3.74); Lymphocytes % 25.4 % (19.3-51.7); Mean Cell Volume 89.9 fL (79.4-94.8); Mean Corpuscular Hemoglobin 29.5 pg (25.6-32.2); Mean Corpuscular Hgb Concent. 32.8 g/dL (32.2-35.5); Mean Platelet Volume 8.7 fL (9.4-12.3); Monocyte (Absolute #) 0.49 x10^3/uL (0.24-0.86); Monocytes % 9.1 % (4.7-12.5); Neutrophil % 57.8 % (34.0-71.1); Platelet Count 295 x10^3/uL (182-369); Red Blood Count 4.37 x10^6/uL (3.93-5.22); Red Cell Distribution Width 12.3 % (11.7-14.4); White Blood Count 5.4 x10^3/uL (3.98-10.04)
[2024-10-23 11:32] LABS: ACETAMINOPHEN < 10 ug/ml (10-30); ALKALINE PHOSPHATASE 95 U/L (38-126); AMYLASE 40 U/L (30-110); ANION GAP 13.1 MEQ/L (5-15); BLOOD UREA NITROGEN 8 mg/dL (7-17); CHLORIDE 103 mmol/L (98-107); Calcium 9.2 mg/dL (8.4-10.2); Carbon Dioxide 27 mmol/L (22-30); EST GLOMERULAR FILTRATION RATE 73.6 ML/MIN; ETHYL ALCOHOL < 10 mg/dL (0-10); Glucose 119 mg/dL (74-106); LIPASE 67 U/L (23-300); SALICYLATE < 1.0 mg/dL (2-20); SGOT/AST 27 U/L (14-36); SGPT/ALT 26 U/L (0-35); SODIUM 139 mmol/L (135-145); Total Protein 6.5 g/dL (6.3-8.2)
[2024-10-23 14:02] LABS: Appearance Clear (Clear); Bacteria Rare /HPF (None Seen); Bilirubin Negative (Negative); Blood Negative (Negative); Epithelial Cells Few /HPF (None Seen); Glucose, Urine Negative (Negative); Hyaline Casts NONE SEEN /LPF (0-2); Ketones Negative (Negative); Leukocyte Esterase Negative (Negative); Nitrite Negative (Negative); Protein,Urine Dip Negative (Negative); RBC 0-2 /HPF (0-5); Specific Gravity >=1.030 (1.005-1.030); Urobilinogen 0.2 mg/dL (0.2)
[2024-10-23 14:15] LABS: Amphetamine,Urine POSITIVE (NEGATIVE); Barbiturate,Urine NEGATIVE (NEGATIVE); Benzodiazepine,Urine POSITIVE (NEGATIVE); Cocaine,Urine NEGATIVE (NEGATIVE); Methadone,Urine NEGATIVE (NEGATIVE); Opiate,Urine NEGATIVE (NEGATIVE); PCP,Urine NEGATIVE (NEGATIVE); THC,Urine POSITIVE (NEGATIVE)
[2024-10-23] MEDS ORDERED: Ativan 2 MG/1 ML VIAL ONE (15:15)
[2024-10-23] MEDS: Ativan 2 MG/1 ML VIAL IV ONE (15:17)
[2024-10-23] MEDS ORDERED: xanAX 0.5 MG ONE (21:30)
[2024-10-23] MEDS: xanAX 0.5 MG PO ONE (21:30)
[2024-10-24 03:07] VITALS: BP 141/97; PULSE 83; RESP 17; O2SAT 97
[2024-10-24 03:42] VITALS: TEMP 96
== END 2024-10-24 03:28 ==
LOC: ED 10:29
DX: F33.2 Major depressive disorder, recurrent severe without psychotic features (principal); R45.851 Suicidal ideations; R10.9 Unspecified abdominal pain; E78.5 Hyperlipidemia, unspecified; I10 Essential (primary) hypertension; Z79.899 Other long term (current) drug therapy
CPT/HCPCS: 36415; 80053; 80143; 80179; 80307; 81001; 82077; 82150; 83690; 85025; 93005; 96374; 99285; J2060; Q3014; A9270-GY